=== PATIENT | male | born 1940 | race Caucasian/White ===

== ENCOUNTER 2016-08-28 04:36 | Emergency (ER) | payer OTHER ==
[2016-08-28 05:06] LABS: MANUAL DIFF NEEDED? NO
[2016-08-28 05:08] LABS: BASO% 0.3 % (0.0-0.8); EOS# 0.09 X1000 (0.0-0.7); EOS% 0.9 % (0.0-10.0); HEMATOCRIT 48.9 % (42.0-52.0); HEMOGLOBIN 16.6 g/dL (14.0-18.0); IMM GRAN# 0.02 X1000 (0.0-0.04); IMM GRAN% 0.2 % (0.0-0.5); LYMPH# 3.18 X1000 (1.2-3.4); LYMPH% 33.5 % (20.5-51.1); MCH 32.3 PG (27-31); MCHC 33.9 g/dL (33-37); MCV 95.1 FL (81-99); MONO# 0.91 X1000 (0.11-0.59); MONO% 9.6 % (1.7-9.3); MPV 11.3 FL (7.4-10.4); NEUT% 55.5 % (42.2-75.2); PLT 148 X1000 (130-400); RBC 5.14 XMIL (4.7-6.1)
[2016-08-28 05:24] LABS: AGAP 17; ALBUMIN 4.2 g/dL (3.5-5.0); ALKALINE PHOSPHATASE 100 U/L (32-122); BUN 17 mg/dL (8-22); CALCIUM 9.3 mg/dL (8.8-10.2); CHLORIDE 100 mmol/L (98-107); CK PROFILE 74 U/L (24-204); COSMO 282; GOT 70 U/L (10-34); GPT 83 U/L (10-44); MAGNESIUM 1.9 mg/dL (1.5-2.7); POTASSIUM 4.5 mmol/L (3.5-5.1); SODIUM 140 mmol/L (136-145); TCO2 23 mmol/L (25-35); TOTAL BILIRUBIN 1.58 mg/dL (0.20-1.00)
[2016-08-28 05:42] LABS: INR 1.01; PROTIME 10.7 Seconds (9.2-11.7); PTT 24.6 Seconds (22.0-36.0)
--- NOTE | 2016-08-28 06:03 | EKG Report ---
Test Performed on : 08/28/2016 04:42:36 AM Test Reason : CP Blood Pressure : / mmHG Vent. Rate : 060 BPM Atrial Rate : 060 BPM P-R Int : 178 ms QRS Dur : 098 ms QT Int : 454 ms P-R-T Axes : 017 -14 113 degrees QTc Int : 454 ms Normal sinus rhythm. Left ventricular hypertrophy with repolarization abnormality Abnormal ECG When compared with ECG of 10-NOV-2015 19:48, No significant change was found Unconfirmed Result
[2016-08-28 06:12] LABS: AMYLASE 59 U/L (20-200); LIPASE 51 U/L (13-60)
[2016-08-28 06:43] LABS: URINE MICRO REVIEW NEEDED? NO; URINE SOURCE VOIDED
[2016-08-28 06:51] LABS: BILIRUBIN URINE NEGATIVE (NEGATIVE); BLOOD URINE NEGATIVE (NEGATIVE); COLOR YELLOW; GLUCOSE URINE NEGATIVE (NEGATIVE); LEUKOCYTES URINE NEGATIVE (NEGATIVE); NITRITE URINE NEGATIVE (NEGATIVE); PROTEIN URINE NEGATIVE (NEGATIVE); SP GRAVITY URINE 1.012; TURBIDITY URINE CLEAR (CLEAR); UROBILINOGEN URINE NORMAL (NORMAL)
[2016-08-28 06:52] LABS: UR EPITHELIAL CELLS <10 /HPF (<10); URINE BACTERIA NEGATIVE /HPF; URINE RBC <10 /HPF (<10); URINE WBC <10 /HPF (<10)
--- NOTE | 2016-08-28 07:00 | PROVIDER DOCUMENTATION ---
HPI-Chest Pain - General Chief Complaint: Chest Pain Stated Complaint: CP Time Seen by Provider: 08/28/16 06:25 Source: patient (Says that he has had intermittent chest pain. Says that his pain is relieved by resting. No fever during this time. has not had any radiation of pain or associated nausea. Says that pain has been off and on the last 2 or so days and that he has this pain befor.) Allergies/Adverse Reactions: Patient Allergies Allergy/AdvReac Type Severity Reaction Status Date / Time shellfish derived Allergy Severe SHORTNESS Verified 08/28/16 07:01 OF BREATH Home Medications: Home Medication List Medication Instructions Recorded Confirmed Last Taken Type Atenolol 50 mg PO DAILY 01/23/14 07/19/16 07/19/16 History ATORVAstatin [Lipitor] 40 mg PO QHS 11/10/15 07/19/16 07/18/16 History Allopurinol 300 mg PO DAILY 11/10/15 07/19/16 07/19/16 History Amlodipine [Norvasc] 2.5 mg PO DAILY 11/10/15 07/19/16 07/19/16 History Aspirin [Ecotrin] 81 mg PO DAILY 11/10/15 07/19/16 07/19/16 History Bupropion HCl [Wellbutrin Xl] 300 mg PO DAILY 11/10/15 07/19/16 07/19/16 History Gabapentin [Neurontin] 300 mg PO TID 11/10/15 07/19/16 07/19/16 History Pantoprazole [Protonix] 40 mg PO DAILY@0700 11/10/15 07/19/16 07/19/16 History Tamsulosin [Flomax] 0.4 mg PO DAILY 11/10/15 07/19/16 07/19/16 History Carbidopa/Levodopa [Sinemet 25/100] 1 each PO BID 07/19/16 07/19/16 07/19/16 History Colchicine/Probenecid [Colbenemid] 0.5 each PO DAILY 07/19/16 07/19/16 07/19/16 History Duloxetine [Cymbalta] 60 mg PO BID 07/19/16 07/19/16 07/19/16 History Levothyroxine [Synthroid] 50 microgm PO DAILY 07/19/16 07/19/16 07/19/16 History Methocarbamol [Robaxin-750] 750 mg PO TID PRN 07/19/16 07/19/16 Unknown History Valsartan [Diovan] 160 mg PO DAILY 07/19/16 07/19/16 07/19/16 History Nitroglycerin 0.3 mg SL PRN PRN #30 tab.subl 08/28/16 Unknown Rx - History of Present Illness-CP Location: reports: substernal Chest Pain Radiation: reports: no radiation Quality of Pain: reports: aching Onset/Duration: 2 days ago Timing: gone now Associated Symptoms: denies: abdominal pain, back pain, diaphoresis, fatigue Prior Chest Pain/Cardiac Workup: reports: angina, cardiac cath Similar Symptoms Previously?: Yes Recently Seen Here or By Another Healthcare Provider: Yes Review of Systems - Adult - REVIEW OF SYSTEMS - ADULT Constitutional: reports: no symptoms reported Eyes: reports: no symptoms reported Ears, Nose, Mouth & Throat: reports: no symptoms reported Cardiovascular: reports: chest pain Respiratory: reports: no symptoms reported Gastrointestinal: reports: no symptoms reported Genitourinary: reports: no symptoms reported Musculoskeletal: reports: no symptoms reported Integumentary: reports: no symptoms reported Neurological: reports: no symptoms reported Endocrine: reports: no symptoms reported Hematologic/Lymphatic: reports: no symptoms reported Past History - Adult - PAST MEDICAL HISTORY-ADULT Review of Records: reports: Nursing Assessment Review Major Childhood Illnesses: reports: denies history Cardiovascular: reports: CAD, HTN, heart valve problem Respiratory: reports: denies history Gastrointestinal: reports: denies history Obstetrical/Gynecological: reports: denies history Genitourinary: reports: denies history Musculoskeletal: reports: denies history Neurological: reports: denies history Endocrine/Immune: reports: denies history Other Conditions: reports: denies history - PRIOR SURGERIES/PROCEDURES Surgical/Procedure History: reports: cardiac stent, other (aortic valve replacement--bovine) - IMMUNIZATION STATUS Childhood Immunizations: See Nurse Assessment Flu Vaccine: See Nurse Assessment - FAMILY HISTORY Family History: reviewed, not pertinent Physical Exam-General - PHYSICAL EXAM-ADULT Initial Vital Signs Reviewed: Yes - CONSTITUTIONAL General Appearance: appears well, no apparent distress - EYES Eyes: PERRL/EOMI - HEAD, EARS, NOSE, MOUTH & THROAT HENMT: normocephalic/atraumatic - NECK Neck: non-tender - RESPIRATORY Respiratory: chest non-tender - CARDIOVASCULAR Cardiovascular: regular rate, rhythm (mechanical valve cliclk appreciated on ausculatation.), no edema, no JVD - MUSCULOSKELETAL Back Exam: normal inspection - NEUROLOGIC Neurologic: technical support technician II-XII nml as tested Progress - REASSESSMENT Reassessment #1 Time Reassessed: 07:00 Status: improving (resting in room, made aware of plan to repeat cardiac enzymes and ecg in 2 hours) Reassessment #2 Time Reassessed: 09:17 Status: other (Patient slleping in room in NAD, says he has no chest pain and is ready to go home.) Departure - Departure Time of Disposition Order: 09:23 DIAGNOSIS: Stable angina Disposition: HOME 01 Certified Medical Emergency: Emergent Condition: Stable Additional Instructions: follow up with PCP in 1-2 days. Prescriptions: Nitroglycerin 0.3 mg SL PRN PRN #30 tab.subl PRN Reason: angina pain
--- NOTE | 2016-08-28 07:38 | Diag Imaging Result Document ---
PROCEDURE NAME: CHEST-1 VIEW - 08/28/2016 AP PORTABLE CHEST AT 0515 HOURS: FINDINGS: Compared to the previous study of 07/19/2016, considering differences in technique and inspiration, there has been no significant change. IMPRESSION: Stable chest.
--- NOTE | 2016-08-28 09:05 | ED EKG INTERP ---
EKG Interpretation - EKG Time of EKG reading by physician:: 04:42 EKG Read and Signed by:: Michael Duque EKG Interpretation (*Must complete 3 of following elements*): Abnormal Rate: 60 Rhythm: nsr QRS: LVH CO Interval: normal ST Wave: normal
--- NOTE | 2016-08-28 09:17 | EKG Report ---
Test Performed on : 08/28/2016 07:27:00 AM Test Reason : repeats Blood Pressure : / mmHG Vent. Rate : 059 BPM Atrial Rate : 059 BPM P-R Int : 194 ms QRS Dur : 094 ms QT Int : 428 ms P-R-T Axes : 033 -17 116 degrees QTc Int : 423 ms Sinus bradycardia. Left ventricular hypertrophy with repolarization abnormality Abnormal ECG When compared with ECG of 28-AUG-2016 04:42, No significant change was found Unconfirmed Result
--- NOTE | 2016-08-28 09:23 | ED EKG INTERP ---
EKG Interpretation - EKG Time of EKG reading by physician:: 07:27 EKG Read and Signed by:: Tam Herrera EKG Interpretation (*Must complete 3 of following elements*): Abnormal Rate: 59 Rhythm: sinus sarah [place]: normal QRS: LVH (left ventricular hypertrophy w/ repolarization adnormality) MI Interval: normal ST Wave: normal
[2016-08-28 10:45] VITALS: BP 130/80
== END 2016-08-28 10:45 | disposition home or self-care (01) ==
LOC: ED 04:36
DX: I20.8 Other forms of angina pectoris (principal); R94.31 Abnormal electrocardiogram [ECG] [EKG]; R07.89 Other chest pain; I25.10 Atherosclerotic heart disease of native coronary artery without angina pectoris; I10 Essential (primary) hypertension; Z79.899 Other long term (current) drug therapy; Z95.5 Presence of coronary angioplasty implant and graft; Z95.2 Presence of prosthetic heart valve
CPT/HCPCS: 71010; 80053; 81001; 82150; 82550; 83690; 83735; 83880; 84484; 85025; 85379; 85610; 85730; 93005

== ENCOUNTER 2016-09-06 19:38 | Inpatient (IN) | payer OTHER ==
--- NOTE | 2016-09-06 19:58 | PROVIDER DOCUMENTATION ---
HPI-Chest Pain - General Source: patient <Alina Branham - Last Filed: 09/07/16 02:12> <Tonny Puri - Last Filed: 09/07/16 02:39> - General Chief Complaint: Chest Pain Stated Complaint: CP Time Seen by Provider: 09/06/16 19:53 Allergies/Adverse Reactions: Patient Allergies Allergy/AdvReac Type Severity Reaction Status Date / Time shellfish derived Allergy Severe SHORTNESS Verified 09/07/16 01:39 OF BREATH Home Medications: Home Medication List Medication Instructions Recorded Confirmed Last Taken Type Atenolol 50 mg PO DAILY 01/23/14 07/19/16 07/19/16 History ATORVAstatin [Lipitor] 40 mg PO QHS 11/10/15 07/19/16 07/18/16 History Allopurinol 300 mg PO DAILY 11/10/15 07/19/16 07/19/16 History Amlodipine [Norvasc] 2.5 mg PO DAILY 11/10/15 07/19/16 07/19/16 History Aspirin [Ecotrin] 81 mg PO DAILY 11/10/15 07/19/16 07/19/16 History Bupropion HCl [Wellbutrin Xl] 300 mg PO DAILY 11/10/15 07/19/16 07/19/16 History Gabapentin [Neurontin] 300 mg PO TID 11/10/15 07/19/16 07/19/16 History Pantoprazole [Protonix] 40 mg PO DAILY@0700 11/10/15 07/19/16 07/19/16 History Tamsulosin [Flomax] 0.4 mg PO DAILY 11/10/15 07/19/16 07/19/16 History Carbidopa/Levodopa [Sinemet 25/100] 1 each PO BID 07/19/16 07/19/16 07/19/16 History Colchicine/Probenecid [Colbenemid] 0.5 each PO DAILY 07/19/16 07/19/16 07/19/16 History Duloxetine [Cymbalta] 60 mg PO BID 07/19/16 07/19/16 07/19/16 History Levothyroxine [Synthroid] 50 microgm PO DAILY 07/19/16 07/19/16 07/19/16 History Methocarbamol [Robaxin-750] 750 mg PO TID PRN 07/19/16 07/19/16 Unknown History Valsartan [Diovan] 160 mg PO DAILY 07/19/16 07/19/16 07/19/16 History Nitroglycerin 0.3 mg SL PRN PRN #30 tab.subl 08/28/16 Unknown Rx - History of Present Illness-CP Nature of Presenting Problem: 76 y/o WM c/o CP x 5 hours. Pt states that he was standing up and talking when the CP started. States that CP is in anterior L chest. Does not radiate. Denies any SOB. States intermittent in nature. Reports that it is 01/04. Was seen in ED 2 weeks ago for the same. States Dr. Dinero is general teller. Denies any N/V, abd. pain. States took 650 mg of ASA at home; did not take nitro, although he has Rx. (Alina Branham) Review of Systems - Adult - REVIEW OF SYSTEMS - ADULT Constitutional: reports: no symptoms reported. denies: chills, fever Eyes: reports: no symptoms reported. denies: blurred vision, double vision Ears, Nose, Mouth & Throat: reports: no symptoms reported. denies: ear pain, loose teeth Cardiovascular: reports: see HPI, chest pain. denies: palpitations Respiratory: reports: no symptoms reported. denies: dyspnea on exertion, shortness of breath Gastrointestinal: reports: no symptoms reported. denies: abdominal pain, nausea , vomiting Genitourinary: reports: no symptoms reported. denies: dysuria, frequency Musculoskeletal: reports: no symptoms reported. denies: joint pain, joint swelling Integumentary: reports: no symptoms reported. denies: nail changes, rash Neurological: reports: no symptoms reported. denies: numbness, paresthesia Psychiatric: reports: no symptoms reported Endocrine: reports: no symptoms reported. denies: cold intolerance, heat intolerance Hematologic/Lymphatic: reports: no symptoms reported. denies: easy bruising, prolonged bleeding Allergic/Immunologic: reports: no symptoms reported All Other Systems: Reviewed and Negative <Alina Branham - Last Filed: 09/07/16 02:12> Past History - Adult - PAST MEDICAL HISTORY-ADULT Review of Records: reports: Nursing Assessment Review, Medications Reviewed Major Childhood Illnesses: reports: denies history Cardiovascular: reports: CAD, HTN, heart valve problem (aortic valve), [place] Respiratory: reports: denies history Gastrointestinal: reports: denies history Obstetrical/Gynecological: reports: denies history Genitourinary: reports: denies history Musculoskeletal: reports: denies history Neurological: reports: denies history Endocrine/Immune: reports: denies history Other Conditions: reports: denies history - PRIOR SURGERIES/PROCEDURES Surgical/Procedure History: reports: cholecystectomy, cardiac stent, other ( aortic valve replacement--bovine) - IMMUNIZATION STATUS Childhood Immunizations: See Nurse Assessment Flu Vaccine: See Nurse Assessment - FAMILY HISTORY Family History: reviewed, not pertinent - SOCIAL HISTORY Smoking: denies Alcohol Use Frequency: never <Maxime Branhamine MaximinoNatalee - Last Filed: 09/07/16 02:12> Physical Exam-General - PHYSICAL EXAM-ADULT Initial Vital Signs Reviewed: Yes - CONSTITUTIONAL General Appearance: alert, mild distress - EYES Eyes: pink conjunctivae - HEAD, EARS, NOSE, MOUTH & THROAT HENMT: normocephalic/atraumatic, moist mucous membranes - NECK Neck: normal inspection - RESPIRATORY Respiratory: chest non-tender, lungs clear, normal breath sounds. negative: crackles, rales, rhonchi, stridor, wheezing - CARDIOVASCULAR Cardiovascular: regular rate, rhythm, diastolic murmur. negative: bradycardia, tachycardia - GASTROINTESTINAL (ABDOMEN) Abdominal Exam: normal bowel sounds, non tender, soft - MUSCULOSKELETAL Back Exam: normal inspection Extremity: normal gait - SKIN Integumentary: normal color, normal turgor, warm/dry. negative: diaphoresis - NEUROLOGIC Neurologic: negative: aphasia - PSYCHIATRIC Psych/Mental Status: normal mood/affect, normal thought content, normal thought process, oriented x 3 <Alina Branham. - Last Filed: 09/07/16 02:12> Progress - XRAY 1 XRAY Study: Chest XRAY Interpretation: No acute findings; post CABG changes noted - CONSULTS/PCP/HOSPITALIST Notification #1 *Consult/PCP/Hospitalist*: Dr. Saenz Time Discussed: 01:41 Reason/Comments: CP Consult Disposition: other (call general teller for further advisement, then call back if pt will be needing inpatient) #2 Consult: Dr. Blunt Time Discussed: 01:48 Reason/Comments: CP Consult Disposition: other (send to if CP not controlled) - CHANGE OF SHIFT REPORT (ED Provider) Report Given and Care Transferred to:: Dr. Cary Time of Transfer: 02:12 Items Pending: Physician Consult/Arrival ( admit for unstable angina) Tentative Impression of Patient: unstable angina <Alina Branham - Last Filed: 09/07/16 02:12> - REASSESSMENT Reassessment #1 Time Reassessed: 02:26 Status: improving (Pt reports that he is not having chest pain right now; Pt reports it is intermittent, but resolved after he was given a third nitro.) - CONSULTS/PCP/HOSPITALIST Notification #1 *Consult/PCP/Hospitalist*: Dr. Blunt (Senior Design Engineer) Time Discussed: 02:31 Consult Disposition: other (recommended to admit) #2 Consult: Dr. Saenz (Hospitalist) Time Discussed: 02:38 Reason/Comments: Informed Dr. Saenz that pt will be staying - CHANGE OF SHIFT REPORT (ED Provider) Report Given and Care Transferred to:: Dr. Cary Time of Transfer: 02:25 Items Pending: Physician Consult/Arrival <Tonny Puri - Last Filed: 09/07/16 02:39> - PLAN OF CARE/RESULTS Progress/Plan/Lab Results: Laboratory Tests 09/06/16 09/06/16 09/06/16 19:46 19:46 19:46 WBC 8.58 RBC 4.24 L Hgb 14.0 Hct 40.5 L MCV 95.5 MCH 33.0 H MCHC 34.6 RDW Std Deviation 14.3 Plt Count 130 MPV 11.1 H Immature Gran % (Auto) 0.3 Neut % (Auto) 58.3 Lymph % (Auto) 29.4 [place] % (Auto) 9.6 H Eos % (Auto) 1.9 Baso % (Auto) 0.5 Immature Gran # (Auto) 0.03 Neut # (Auto) 5.01 Lymph # (Auto) 2.52 [place] # (Auto) 0.82 H Eos # (Auto) 0.16 Baso # (Auto) 0.04 PT INR PTT (Actin FS) D-Dimer 0.29 Sodium 139 Potassium 3.9 Chloride 101 Carbon Dioxide 26 Anion Gap 12 BUN 13 Creatinine 1.0 Estimated GFR/1.73 m2 > 60 BUN/Creatinine Ratio 13 Glucose 137 H Calculated Osmolality 280 Calcium 9.0 Magnesium 1.6 Total Bilirubin 0.95 AST 46 H ALT 50 H Alkaline Phosphatase 93 Creatine Kinase 99 Troponin T Mau-D-Elmpxnndksr Pept Total Protein 6.2 L Albumin 3.9 Globulin 2.3 Albumin/Globulin Ratio 1.7 09/06/16 09/06/16 09/06/16 19:46 19:46 19:46 WBC RBC Hgb Hct MCV MCH MCHC RDW Std Deviation Plt Count MPV Immature Gran % (Auto) Neut % (Auto) Lymph % (Auto) [place] % (Auto) Eos % (Auto) Baso % (Auto) Immature Gran # (Auto) Neut # (Auto) Lymph # (Auto) [place] # (Auto) Eos # (Auto) Baso # (Auto) PT 10.5 INR 1.03 PTT (Actin FS) 23.1 D-Dimer Sodium Potassium Chloride Carbon Dioxide Anion Gap BUN Creatinine Estimated GFR/1.73 m2 BUN/Creatinine Ratio Glucose Calculated Osmolality Calcium Magnesium Total Bilirubin AST ALT Alkaline Phosphatase Creatine Kinase Troponin T < 0.010 Ocb-P-Arzvxlwudhi Pept 256 H Total Protein Albumin Globulin Albumin/Globulin Ratio 09/07/16 09/07/16 00:30 00:30 WBC RBC Hgb Hct MCV MCH MCHC RDW Std Deviation Plt Count MPV Immature Gran % (Auto) Neut % (Auto) Lymph % (Auto) [place] % (Auto) Eos % (Auto) Baso % (Auto) Immature Gran # (Auto) Neut # (Auto) Lymph # (Auto) [place] # (Auto) Eos # (Auto) Baso # (Auto) PT INR PTT (Actin FS) D-Dimer Sodium Potassium Chloride Carbon Dioxide Anion Gap BUN Creatinine Estimated GFR/1.73 m2 BUN/Creatinine Ratio Glucose Calculated Osmolality Calcium Magnesium Total Bilirubin AST ALT Alkaline Phosphatase Creatine Kinase 87 Troponin T < 0.010 Oud-B-Fsuotbpcwhp Pept Total Protein Albumin Globulin Albumin/Globulin Ratio Orders Category Date Time Status CHEST-2 VIEWS [RAD] Stat Exams 09/06/16 19:55 Taken CBC WITH ELECTRONIC DIFF [HEME] Stat Lab 09/06/16 19:46 Completed CK PROFILE [SP CHEM] Stat Lab 09/06/16 19:46 Completed CK PROFILE [SP CHEM] Stat Lab 09/07/16 00:30 Completed COMPREHENSIVE METABOLIC PANEL [CHEM] Stat Lab 09/06/16 19:46 Completed D-DIMER [CHEM] Stat Lab 09/06/16 19:46 Completed MAGNESIUM [CHEM] Stat Lab 09/06/16 19:46 Completed PRO B-NATRIURETIC PEPTIDE Stat Lab 09/06/16 19:46 Completed PROTIME WITH INR [COAG] Stat Lab 09/06/16 19:46 Completed PTT [COAG] Stat Lab 09/06/16 19:46 Completed TROPONIN T Stat Lab 09/06/16 19:46 Completed TROPONIN T Stat Lab 09/07/16 00:30 Completed Nitroglycerin Sl [Nitroglycerin] Med 09/07/16 00:09 Active 0.4 mg SL Q5M PRN PRN EKG [EKG] Stat Ther 09/06/16 19:55 Ordered EKG [EKG] Stat Ther 09/06/16 22:10 Ordered Vital Signs Temp Pulse Resp BP Pulse Ox 09/07/16 00:33 68 17 160/89 98 09/06/16 19:45 98.1 F 64 18 149/94 99 shellfish derived Allergy (Severe, Verified 08/28/16 07:01) SHORTNESS OF BREATH Atenolol 50 mg PO DAILY 01/23/14 ATORVAstatin [Lipitor] 40 mg PO QHS 11/10/15 Allopurinol 300 mg PO DAILY 11/10/15 Amlodipine [Norvasc] 2.5 mg PO DAILY 11/10/15 Aspirin [Ecotrin] 81 mg PO DAILY 11/10/15 Bupropion HCl [Wellbutrin Xl] 300 mg PO DAILY 11/10/15 Gabapentin [Neurontin] 300 mg PO TID 11/10/15 Pantoprazole [Protonix] 40 mg PO DAILY@0700 11/10/15 Tamsulosin [Flomax] 0.4 mg PO DAILY 11/10/15 Carbidopa/Levodopa [Sinemet 25/100] 1 each PO BID 07/19/16 Colchicine/Probenecid [Colbenemid] 0.5 each PO DAILY 07/19/16 Duloxetine [Cymbalta] 60 mg PO BID 07/19/16 Levothyroxine [Synthroid] 50 microgm PO DAILY 07/19/16 Methocarbamol [Robaxin-750] 750 mg PO TID PRN 07/19/16 Valsartan [Diovan] 160 mg PO DAILY 07/19/16 Nitroglycerin 0.3 mg SL PRN PRN #30 tab.subl 08/28/16 Laboratory 09/07/16 09/07/16 09/06/16 00:30 00:30 19:46 WBC RBC Hgb Hct MCV MCH MCHC RDW Std Deviation Plt Count MPV Immature Gran % (Auto) Neut % (Auto) Lymph % (Auto) [place] % (Auto) Eos % (Auto) Baso % (Auto) Immature Gran # (Auto) Neut # (Auto) Lymph # (Auto) [place] # (Auto) Eos # (Auto) Baso # (Auto) PT INR PTT (Actin FS) D-Dimer Sodium Potassium Chloride Carbon Dioxide Anion Gap BUN Creatinine Estimated GFR/1.73 m2 BUN/Creatinine Ratio Glucose Calculated Osmolality Calcium Magnesium Total Bilirubin AST ALT Alkaline Phosphatase Creatine Kinase 87 Troponin T < 0.010 < 0.010 Lai-U-Dyxhqyncnme Pept Total Protein Albumin Globulin Albumin/Globulin Ratio 09/06/16 09/06/16 09/06/16 19:46 19:46 19:46 WBC RBC Hgb Hct MCV MCH MCHC RDW Std Deviation Plt Count MPV Immature Gran % (Auto) Neut % (Auto) Lymph % (Auto) [place] % (Auto) Eos % (Auto) Baso % (Auto) Immature Gran # (Auto) Neut # (Auto) Lymph # (Auto) [place] # (Auto) Eos # (Auto) Baso # (Auto) PT 10.5 INR 1.03 PTT (Actin FS) 23.1 D-Dimer 0.29 Sodium Potassium Chloride Carbon Dioxide Anion Gap BUN Creatinine Estimated GFR/1.73 m2 BUN/Creatinine Ratio Glucose Calculated Osmolality Calcium Magnesium Total Bilirubin AST ALT Alkaline Phosphatase Creatine Kinase Troponin T Hsc-S-Qggdhvsflnv Pept 256 H Total Protein Albumin Globulin Albumin/Globulin Ratio 09/06/16 09/06/16 19:46 19:46 WBC 8.58 RBC 4.24 L Hgb 14.0 Hct 40.5 L MCV 95.5 MCH 33.0 H MCHC 34.6 RDW Std Deviation 14.3 Plt Count 130 MPV 11.1 H Immature Gran % (Auto) 0.3 Neut % (Auto) 58.3 Lymph % (Auto) 29.4 [place] % (Auto) 9.6 H Eos % (Auto) 1.9 Baso % (Auto) 0.5 Immature Gran # (Auto) 0.03 Neut # (Auto) 5.01 Lymph # (Auto) 2.52 [place] # (Auto) 0.82 H Eos # (Auto) 0.16 Baso # (Auto) 0.04 PT INR PTT (Actin FS) D-Dimer Sodium 139 Potassium 3.9 Chloride 101 Carbon Dioxide 26 Anion Gap 12 BUN 13 Creatinine 1.0 Estimated GFR/1.73 m2 > 60 BUN/Creatinine Ratio 13 Glucose 137 H Calculated Osmolality 280 Calcium 9.0 Magnesium 1.6 Total Bilirubin 0.95 AST 46 H ALT 50 H Alkaline Phosphatase 93 Creatine Kinase 99 Troponin T Ftn-X-Kwmctgubmsj Pept Total Protein 6.2 L Albumin 3.9 Globulin 2.3 Albumin/Globulin Ratio 1.[address] Cary; he states pt needs to be admitted for observation. (Alina Branham) Departure - Departure Time of Disposition Order: 01:18 Certified Medical Emergency: Emergent <Alina Branham - Last Filed: 09/07/16 02:12> <Tonny Puri - Last Filed: 09/07/16 02:39> - Departure DIAGNOSIS: Chest pain Qualifiers: Chest pain type: unspecified Qualified Code(s): R07.9 - Chest pain, unspecified Disposition: ADMITTED INPATIENT 09 Condition: Stable Referrals: Fuentes Katz MD [Primary Care Provider] - Attestation - Physician/ ALLIE Attestation Patient care was provided by Advanced Practice Provider:: Yes Advanced Practice Provider:: Alina Branham Advanced Practice Provider documentation review:: The Mid-level provider documentation, treatment plan and medical decision making was reviewed by the physician who agrees with all treatment and medical decision making by the P. <Alina Branham - Last Filed: 09/07/16 02:12> - Scribe Verification/Attestation Scribe:: Tonny Puri Acting as Scribe for:: Alex Cary Scribe documention review:: This chart was documented by a scribe and accurately reflects the service the provider performed and the decisions made by the provider. <Tonny Puri - Last Filed: 09/07/16 02:39> Physician Attestation
[2016-09-06 20:00] LABS: MANUAL DIFF NEEDED? NO
[2016-09-06 20:06] LABS: BASO% 0.5 % (0.0-0.8); EOS# 0.16 X1000 (0.0-0.7); EOS% 1.9 % (0.0-10.0); HEMATOCRIT 40.5 % (42.0-52.0); IMM GRAN# 0.03 X1000 (0.0-0.04); IMM GRAN% 0.3 % (0.0-0.5); LYMPH# 2.52 X1000 (1.2-3.4); LYMPH% 29.4 % (20.5-51.1); MCHC 34.6 g/dL (33-37); MCV 95.5 FL (81-99); MONO# 0.82 X1000 (0.11-0.59); MONO% 9.6 % (1.7-9.3); MPV 11.1 FL (7.4-10.4); NEUT% 58.3 % (42.2-75.2); PLT 130 X1000 (130-400); RBC 4.24 XMIL (4.7-6.1)
[2016-09-06 20:19] LABS: INR 1.03; PROTIME 10.5 Seconds (9.2-11.7); PTT 23.1 Seconds (22.0-36.0)
[2016-09-06 20:27] LABS: AGAP 12; ALBUMIN 3.9 g/dL (3.5-5.0); ALKALINE PHOSPHATASE 93 U/L (32-122); BUN 13 mg/dL (8-22); CHLORIDE 101 mmol/L (98-107); CK PROFILE 99 U/L (24-204); COSMO 280; GOT 46 U/L (10-34); GPT 50 U/L (10-44); MAGNESIUM 1.6 mg/dL (1.5-2.7); POTASSIUM 3.9 mmol/L (3.5-5.1); SODIUM 139 mmol/L (136-145); TCO2 26 mmol/L (25-35); TOTAL BILIRUBIN 0.95 mg/dL (0.20-1.00); TOTAL PROTEIN 6.2 g/dL (6.3-8.3)
--- NOTE | 2016-09-07 00:45 | ED EKG INTERP ---
EKG Interpretation - EKG Time of EKG reading by physician:: 00:44 EKG Read and Signed by:: Alex Cary EKG Interpretation (*Must complete 3 of following elements*): Abnormal (LVH with repolarization abnormality) Rate: 65 Rhythm: Sinus rhythm with PAC with aberrant conduction Attestation - Scribe Verification/Attestation Scribe:: Tonny Puri Acting as Scribe for:: Alex Cary Scribe documention review:: This chart was documented by a scribe and accurately reflects the service the provider performed and the decisions made by the provider.
[2016-09-07] MEDS ORDERED: G.I. COCKTAIL PO ONE (01:47)
[2016-09-07] MEDS ORDERED: TRANDATE PO ONE (01:47)
[2016-09-07] MEDS: NITROGLYCERIN SL PRN ×3 (01:48→01:58)
[2016-09-07] MEDS ORDERED: MORPHINE IV ONE (02:25)
[2016-09-07] MEDS ORDERED: LASIX IV ONE (02:25)
[2016-09-07] MEDS ORDERED: ZOFRAN IV ONE (02:25)
[2016-09-07] MEDS ORDERED: ZOFRAN IV PRN ×2 (04:22→22:57)
[2016-09-07] MEDS ORDERED: NITROGLYCERIN TOP ONE (04:22)
[2016-09-07] MEDS ORDERED: MORPHINE ONE (04:28)
[2016-09-07] MEDS: MORPHINE IV PRN ×2 (04:32→20:57)
[2016-09-07] MEDS: LOVENOX SUBQ SCH (06:49)
[2016-09-07] MEDS ORDERED: PRILOSEC PO SCH (07:00)
--- NOTE | 2016-09-07 07:24 | HISTORY AND PHYSICAL ---
REASON FOR ADMISSION: Chest pain yesterday afternoon. Adriel Zamorano is a 76-year-old male with a past medical history of carotid disease, aortic stenosis, status post aortic valve replacement with bioprosthetic valve, gout, hypertension, hyperlipidemia, hyperlipidemia, benign prostatic hypertrophy, who comes in complaining of some sharp pain in the precordial area nonradiating, nonreassuring, with any anginal equivalent. He says the pain would last anywhere between 3-5 minutes and spontaneously resolved. No antecedent triggers for this pain. He has had a total of 5-6 episodes and decided to come in on the 6th episode, which was pretty much the longest one lasting over 30-45 minutes. He received a total of 2 sublingual nitroglycerin tablets, which initially relieved his pain, only for it to recur again about 30 minutes later and is receiving morphine for this. Again, he denies any anginal equivalents, i.e. palpitations, lightheadedness, nausea, vomiting, diaphoresis. No antecedent lower extremity symptoms. No swelling or pain. No paroxysmal nocturnal dyspnea or orthopnea. No cough, fever, or chills. Yesterday he complained of having a 1 hour episode of pain shooting down both arms, which spontaneously resolve on its own. REVIEW OF SYSTEMS: Twelve system review is negative. Positive findings per history of present illness. ALLERGIES: Shellfish. HOME MEDICATIONS: Not yet addressed, but old records show that he was taking Robaxin 750 mg daily, colchicine, probenecid 0.5 mg tablets daily, Cymbalta 60 mg b.i.d., carbidopa 25/100 b.i.d., Synthroid 50 mcg daily, valsartan 160 mg daily, allopurinol 200 mg daily, aspirin 81 mg daily, Wellbutrin XL 200 mg daily, Flomax 0.4 mg daily, Lipitor 40 mg daily, gabapentin 200 mg b.i.d., Norvasc 2.5 mg daily, Protonix 40 mg daily, sublingual nitroglycerin p.r.n. SURGICAL HISTORY: Noted for cataract surgery, aortic valve replacement, coronary stenting. FAMILY HISTORY: No first-degree relatives with heart disease, and type 2 diabetes. SOCIAL HISTORY: Chews tobacco. Does not smoke, drink alcohol, or use illicit drugs. He is . EKG showed normal sinus rhythm with premature atrial contractions and left ventricular hypertrophy in the high lateral leads. Chest x-ray is clear of any infiltrates or increased vascular markings. LABORATORY WORK: Rest of laboratory work his white count 8000. Hemoglobin and hematocrit 14 and 40.5. Platelets 113,000, normal differential. Glucose 137. AST 46, ALT 50. Troponin times 2 negative. ProBNP 256. D-dimer is normal. PTT is normal. PHYSICAL EXAMINATION: VITAL SIGNS: Blood pressure is 104/73, heart rate is 60, respirations 16, 95% on room air, temperature is 98.1. HEAD: Head is normocephalic, atraumatic. EYES: Pupils equal, round, and reactive to light and accommodation. Extraocular movements intact. He is anicteric, not pale. ENT EXAMINATION: Oropharynx is grossly normal. NECK: Supple. No jugular venous distention, carotid bruit, no thyromegaly. CHEST: Clear to auscultation. Good sounds in both lung vasquez. CARDIOVASCULAR: First and second heart sounds heard. A 2/6 ejection systolic murmur heard, loudest in the aortic area radiating to the neck. Rhythm is regular. No gallops. ABDOMEN: Slightly protuberant, soft, nontender. No mass or organomegaly. Bowel sounds are hyperactive. RECTAL EXAMINATION: Not done. EXTREMITIES: Patient has bilateral hyperpigmented changes on his lower extremities. No erythema or pretibial edema. No clubbing or peripheral cyanosis. Pulses distally in his lower extremities are symmetrical, but volume was diminished. NEUROLOGICAL: No focal deficits. SKIN: Intact otherwise, other than the findings noted as above. MUSCULOSKELETAL EXAMINATION: Normal. ASSESSMENT: 1. Chest pain syndrome in a patient with documented coronary artery disease. 2. Aortic murmur, probably related to his aortic valve. 3. Hypertension. 4. Hyperlipidemia. 5. Gout. 6. Hypothyroidism. PLAN: At this time the patient will be admitted to rule out any impending acute coronary event. Dr. Blunt, the automobile body repairer helper was notified and he agreed that we should admit the patient. I will defer to cardiology on how to cardiology on how they will proceed i.e. cath versus stress test. Last stress test was done in 2013 and this was negative for any ischemia. For now, we will continue with his statin therapy, beta blockers, and aspirin. Put the patient on low-dose nitroglycerin paste. Pending evaluation. Check lipid panel and decide if we need to increase the dose of Lipitor. Counseled patient against chewing tobacco. The patient was given a GI cocktail without any relief. This baseline suggests underlying cardiac disease. Will get echocardiogram to evaluate patient's aortic valve status.
--- NOTE | 2016-09-07 08:59 | EKG Report ---
Test Performed on : 09/07/2016 04:14:58 AM Test Reason : Chest Pain Blood Pressure : / mmHG Vent. Rate : 060 BPM Atrial Rate : 060 BPM P-R Int : 180 ms QRS Dur : 098 ms QT Int : 450 ms P-R-T Axes : 039 -25 113 degrees QTc Int : 450 ms Normal sinus rhythm. Left ventricular hypertrophy with repolarization abnormality Abnormal ECG When compared with ECG of 07-SEP-2016 00:25, (Unconfirmed) aberrant conduction. is no longer present Confirmed by Maria Del Carmen BAILEY, Dmitriy Mosley ([id number]) on 09/09/2016 3:21:42 PM
--- NOTE | 2016-09-07 09:04 | EKG Report ---
Test Performed on : 09/07/2016 00:25:56 AM Test Reason : CP Blood Pressure : / mmHG Vent. Rate : 065 BPM Atrial Rate : 065 BPM P-R Int : 188 ms QRS Dur : 100 ms QT Int : 412 ms P-R-T Axes : 083 -07 119 degrees QTc Int : 428 ms Sinus rhythm. with premature atrial complexes. with aberrant conduction. Left ventricular hypertrophy with repolarization abnormality Abnormal ECG When compared with ECG of 06-SEP-2016 19:42, (Unconfirmed) aberrant conduction. is now present Confirmed by Maria Del Carmen BALIEY, Dmitriy Mosley ([id number]) on 09/09/2016 3:21:41 PM
--- NOTE | 2016-09-07 09:17 | EKG Report ---
Test Performed on : 09/06/2016 7:42:15 PM Test Reason : Chest Pain Blood Pressure : / mmHG Vent. Rate : 062 BPM Atrial Rate : 062 BPM P-R Int : 164 ms QRS Dur : 108 ms QT Int : 424 ms P-R-T Axes : 011 -04 112 degrees QTc Int : 430 ms Normal sinus rhythm. Left ventricular hypertrophy with repolarization abnormality Abnormal ECG When compared with ECG of 28-AUG-2016 07:27, (Unconfirmed) No significant change was found Unconfirmed Result
[2016-09-07 10:11] LABS: MANUAL DIFF NEEDED? NO
--- NOTE | 2016-09-07 10:13 | Diag Imaging Result Document ---
PROCEDURE NAME: CHEST-2 VIEWS - 09/06/2016 CHEST X-RAY 2 VIEWS, 09/06/2016: COMPARISON: 08/28/2016. FINDINGS: Stable cardiac surgery. Heart size and pulmonary vascularity are normal. No focal infiltrates, pneumothorax, or pleural effusion. IMPRESSION: No acute disease or change from prior.
[2016-09-07 10:14] LABS: BASO% 0.4 % (0.0-0.8); EOS# 0.18 X1000 (0.0-0.7); EOS% 2.5 % (0.0-10.0); HEMATOCRIT 41.7 % (42.0-52.0); HEMOGLOBIN 14.5 g/dL (14.0-18.0); LYMPH# 2.14 X1000 (1.2-3.4); LYMPH% 29.8 % (20.5-51.1); MCH 33.3 PG (27-31); MCHC 34.8 g/dL (33-37); MCV 95.9 FL (81-99); MONO# 0.67 X1000 (0.11-0.59); MONO% 9.3 % (1.7-9.3); MPV 11.2 FL (7.4-10.4); PLT 132 X1000 (130-400); RBC 4.35 XMIL (4.7-6.1)
[2016-09-07] MEDS: TENORMIN PO SCH (10:38)
[2016-09-07] MEDS: TYLENOL PO PRN ×2 (10:38→17:36)
[2016-09-07] MEDS: NEURONTIN PO SCH ×3 (10:39→17:38)
[2016-09-07] MEDS: SYNTHROID PO SCH (10:39)
[2016-09-07] MEDS: NORVASC PO SCH (10:39)
[2016-09-07] MEDS: SINEMET 25/100 PO SCH ×2 (10:39→20:56)
[2016-09-07 10:40] LABS: AGAP 14; BUN 11 mg/dL (8-22); CALCIUM 8.9 mg/dL (8.8-10.2); CHLORIDE 101 mmol/L (98-107); COSMO 285; SODIUM 143 mmol/L (136-145); TCO2 28 mmol/L (25-35)
[2016-09-07] MEDS: ASPIRIN PO SCH (10:40)
[2016-09-07] MEDS: PRILOSEC PO SCH (10:40)
[2016-09-07] MEDS: FLOMAX PO SCH (10:40)
[2016-09-07] MEDS: DIOVAN PO SCH (10:40)
[2016-09-07] MEDS ORDERED: LEXISCAN ONE (11:50)
[2016-09-07] MEDS ORDERED: AMINOPHYLLINE ONE (12:42)
--- NOTE | 2016-09-07 15:18 | CONSULTATION ---
DATE OF CONSULTATION: 09/07/2016 CHIEF COMPLAINT: Chest pain. REQUESTING PHYSICIAN: Dr. Fuentes Katz HISTORY OF PRESENT ILLNESS: Mr. Zamorano is a 76-year-old male. He says that on 09/05/2016, he had an episode of about an hour duration of discomfort in both arms from the elbows all the way down to the hands. This happened for no reason when he was watching TV. Then the following day at about 2:00 p.m. or so, he started noticing discomfort in the anterior chest that he described as sharp and recurrent, lasting only for a few moments. He had multiple episodes of this, and then eventually he decided to come into the emergency room seeking evaluation. Upon arrival, they did an electrocardiogram which showed no acute changes. He received several blood studies including troponins, they have done a total of 4, all of them negative. They checked a ProBNP level that is minimally elevated at 256, normal is up to 229. They have done electrolytes, all of them normal. Hemoglobin is normal. Chest x-ray was done at the time of presentation that shows no acute disease or change from prior. They checked a cholesterol panel on him that shows a total cholesterol of 108, LDL is 49, HDL is 40, triglycerides 193. That is the lowest cholesterol he has had in a long time. He had normal D-dimer, ProTime and PTT. The patient has already undergone a stress test this afternoon. I am seeing him at about 2:15 in the afternoon. His stress test shows a predominantly fixed apical anterior defect which is very mild and focal, and it also shows a mixed defect in the inferolateral wall which would correspond to a previously occluded circumflex. The patient states that he is feeling essentially fine. PAST MEDICAL HISTORY: Positive for severe coronary artery disease. He has had previous occlusion of the circumflex coronary artery with collaterals noted and cardiac catheterization performed back in 2010. Last year in 07/2015, he suffered an acute anterior myocardial infarction and at that time, they had to perform thrombectomy of the LAD. They put him on dual antiplatelet therapy; however, for unknown reasons, he only took the dual antiplatelet therapy for about 6 months, and then he discontinued it. He has had a previous diagnosis of aortic valve disease and in 2006 he underwent aortic valve replacement with a #21 Venita-Singh bioprosthetic valve. He has dyslipidemia which has been very difficult to treat, and lately he was placed on Praluent, and that has led to a significant reduction in his LDL. He has had a previous stent to the right coronary artery. He has had gastric reflux. He has had gout. He has had hypertension. PAST SURGICAL HISTORY: Cholecystectomy. SOCIAL HISTORY: He is to his for 56 years. He has 2 children. He is not a smoker. 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 FAMILY HISTORY: Noncontributory. His mother is still alive, she is 94. MEDICATIONS: Listed at this time included atorvastatin 40 at bedtime, allopurinol 300 daily, amlodipine 2.5 daily, aspirin 81 daily, atenolol 50 daily, bupropion 300 daily, carbidopa/levodopa (Sinemet) 25/100 twice a day, colchicine 0.5 mg daily, Cymbalta 60 mg twice a day, gabapentin 300 three times a day, levothyroxine 50 mcg daily, methocarbamol 750 three times a day, nitroglycerin 0.4 mg as needed, Protonix 40 mg daily, Flomax 0.4 mg daily, valsartan 160 daily. ALLERGIES: Shellfish. REVIEW OF SYSTEMS: Really noncontributory after cardiovascular, pulmonary, gastrointestinal, neurological, psychiatric, skin, hematologic, oncologic, ENT, genitourinary and metabolic were reviewed. PHYSICAL EXAMINATION: Blood pressure is 104/73, temperature 98.1, respirations 16. He is awake, alert and oriented, in no distress. HEENT: Unremarkable. Chest: Clear to auscultation and percussion. Cardiovascular: He shows a sternotomy. Heart sounds are regular and rhythmic. He has a 2/6 systolic ejection murmur with a systolic click over the aortic area. Abdomen: Nontender, obese. No masses. No hepatomegaly. Extremities show good pulses, no edema. Neurologic: He moves all 4 extremities, follows commands. IMPRESSION: 1. The patient presented with chest pain which is atypical. He does have previous diagnosis of coronary artery disease with total occlusion of circumflex, stent to right coronary and a recent anterior myocardial infarction with a stent and thrombectomy to LAD. He has had a stable pattern of symptoms until the onset of the aforementioned complaints. 2. History of hypertension. 3. History of bioprosthetic aortic valve replacement in 2006 for aortic valve disease. 4. Dyslipidemia. The patient is presently on Praluent. RECOMMENDATIONS: At this point in time, we will review the echocardiogram that has been requested. I will observe him overnight. Consideration may be given at pursuing left heart catheterization if symptoms continue overnight or if there is a significant abnormality noted on the echocardiogram that was unsuspected. Further advice will be forthcoming.
[2016-09-07] MEDS ORDERED: LIPITOR PO SCH (21:00)
--- NOTE | 2016-09-07 21:32 | Diag Imaging Result Document ---
PROCEDURE NAME: MYOCARDIAL PERF SCAN, STR/REST - 09/07/2016 REQUESTING PHYSICIAN: Iam Fuentes M.D. SUMMARY: The patient was administered 11.5 millicuries of technetium-99m sestamibi with resting cardiac images obtained. The patient was Lexiscan scan protocol. Patient was administered Lexiscan intravenously and ambulated on a treadmill with heart rate increasing from 73 beats per minute to 94 beats per minute while blood pressure went from 110/69 to 124/90. With stress the patient reported chest discomfort. Baseline ECG demonstrates sinus rhythm and ST and T- wave abnormality in leads 1 and aVL, consider lateral ischemia. With stress the patient developed additional ST and T abnormality and ST depression in the lateral precordial leads which returned to baseline in recovery. SPECT images were reconstructed in the short, horizontal, and vertical axis. A review of these images demonstrated severely diminished activity in the base of the inferolateral region and moderate diminished activity in the mid inferolateral region of the left ventricle on stress images. There is partial improvement in the mid inferolateral region of the left ventricle. Calculated ejection fraction 75% with symmetrical wall motion/thickening. CONCLUSIONS: 1. Adequate response to Lexiscan. 2. Clinically positive for chest pain. 3. Stress ECG was abnormal suggesting inducible myocardial ischemia. 4. Abnormal Lexiscan sestamibi images demonstrate mixed defect in the basal to mid inferolateral recent left ventricle with corresponding preserved regional wall-motion suggesting inducible myocardial ischemia and distribution of left circumflex coronary artery. Normal left ventricular systolic function demonstrated.
[2016-09-07] MEDS ORDERED: MAGNESIUM SULFATE 2 GM in STERILE WATER INJ. 50 ML IV PRN ×4 (22:57)
[2016-09-07] MEDS ORDERED: CEPACOL SORE THROAT LOZENGE MT PRN (22:57)
[2016-09-07] MEDS ORDERED: RESTORIL PO PRN (22:57)
[2016-09-07] MEDS ORDERED: DULCOLAX PR PRN (22:57)
[2016-09-07] MEDS ORDERED: NITROGLYCERIN SL PRN (22:57)
[2016-09-07] MEDS ORDERED: XANAX PO PRN (22:57)
[2016-09-07] MEDS ORDERED: MAGNESIUM SULFATE 3 GM in NS 100 ML IV PRN (22:57)
[2016-09-07] MEDS ORDERED: TYLENOL PO PRN (22:57)
[2016-09-07] MEDS ORDERED: KLOR-CON PO PRN ×3 (22:57)
[2016-09-07] MEDS ORDERED: MILK OF MAGNESIA PO PRN (22:57)
[2016-09-07] MEDS ORDERED: PERCOCET-5 PO PRN (22:57)
[2016-09-08] MEDS: LOVENOX SUBQ SCH (04:25)
--- NOTE | 2016-09-08 05:13 | ECHO REPORT ---
ORDER DATE: 09/07/2016 DIAGNOSIS: Aortic valve disorder with history of previous aortic valve replacement. MEASUREMENTS: 1. Left ventricular end-diastolic diameter 3.7, and systolic diameter 2.5. 2. Posterior wall thickness 1.4. 3. Septal thickness 1.4. 4. Left atrium 4.1. 5. Aortic root 3.7. SUMMARY: 1. Technically difficult study due to limited acoustic window quality. 2. Aortic valve has been replaced with bioprosthesis and is not well seen. Peak gradient across the aortic valve is 37 mmHg with a mean gradient of 21 mmHg. Calculated aortic valve area is 1.6 cm2. There is no aortic regurgitation. Moderate mitral annular calcification is demonstrated with mild (1+) mitral regurgitation. Tricuspid and pulmonic valves are without structural abnormality with trace tricuspid regurgitation and mild pulmonic insufficiency. The estimated systolic PA pressure by Doppler is 30 mmHg. Aortic root is normal in size. 3. Normal left chamber size with mild concentric left hypertrophy is demonstrated. The estimated left ventricular ejection fraction is 60%. No regional wall motion abnormality is evident. Doppler suggests left ventricular diastolic dysfunction due to impaired relaxation (grade 1 left ventricular diastolic dysfunction). Left atrium is mildly enlarged. Right atrium and right ventricle are normal size with grossly preserved right ventricular systolic force. 4. No pericardial effusion. 5. Appearance of the inferior vena cava suggests normal central venous pressure. CONCLUSIONS: 1. Actively functioning aortic valve bioprosthesis. 2. Mild mitral regurgitation. 3. Mild concentric left hypertrophy. 4. Normal left ventricular systolic function. 5. Doppler suggests grade 1 left ventricular diastolic dysfunction. 6. Mild left atrial enlargement.
[2016-09-08] MEDS: PRILOSEC PO SCH (06:22)
[2016-09-08] MEDS: FLOMAX PO SCH (08:56)
[2016-09-08] MEDS: ASPIRIN PO SCH (08:56)
[2016-09-08] MEDS: TENORMIN PO SCH (08:56)
[2016-09-08] MEDS: DIOVAN PO SCH (08:56)
[2016-09-08] MEDS: SYNTHROID PO SCH (08:57)
[2016-09-08] MEDS: NORVASC PO SCH (08:57)
[2016-09-08] MEDS: SINEMET 25/100 PO SCH ×2 (08:57→08:58)
[2016-09-08] MEDS: NEURONTIN PO SCH ×2 (08:57→18:43)
--- NOTE | 2016-09-08 17:10 | PROGRESS NOTE ---
DATE: 09/08/2016 CHIEF COMPLAINT: Chest pain. SUBJECTIVE: Mr. Zamorano continues to have chest discomfort. Over the course of the night, he had multiple bouts of chest discomfort. He is presently on Tenormin, amlodipine. His stress test done yesterday shows focal anterior defect that is fixed and a partially reversible lateral wall defect which is probably related to a chronically occluded circumflex system. OBJECTIVE: Vital signs: His blood pressure today is 138/89. Temperature 97.6. Pulse 68. Respirations 12. General: He is awake, alert, oriented, in no distress. HEENT: Unremarkable. Chest: Clear to auscultation and percussion. Cardiac: Heart sounds are regular and rhythmic. No gallop or murmur. Abdomen: Nontender. Extremities: Show no edema. Neurologic: Exam is normal. LABORATORY DATA: He ruled out with multiple sets of troponins. IMPRESSION: 1. The patient has recurrent chest pain, angina pectoris. He does have an abnormal stress test. 2. Previous myocardial infarction, stent to LAD. 3. Hypertension. 4. Severe hyperlipidemia. RECOMMENDATIONS: The patient continues to have chest pain in spite of our best efforts. He really wants to go to [place] for an arteriogram. Will make arrangements for that. Benefits, risks, complications of cardiac catheterization were discussed with him. We called the transfer center and they will make arrangements for that specific purpose.
--- NOTE | 2016-09-08 17:47 | PROGRESS NOTE ---
DATE: 09/08/2016 SUBJECTIVE: Patient continues to have some fleeting pains in his left chest, very atypical, but they come and go. His stress test did show some inducible ischemia, and echocardiogram was reasonably normal except for some mild diastolic dysfunction. OBJECTIVE: Vital Signs: Afebrile. Vital signs stable. CV: RRR with murmur. Lungs: CTA. Extremities: No edema. Neuro: Nonfocal. DIAGNOSTIC DATA: Cardiac enzymes: Troponin levels normal. Lipid profile good. Echocardiogram shows limited acoustic window, moderate annular calcification of the aorta with 1+ mitral regurgitation, trace TR and mild PI. EF 60%. No regional wall motion abnormality. Grade 1 left ventricular diastolic dysfunction. No pericardial effusion. Aortic valve bioprosthesis. ASSESSMENT: 1. Chest pain. 2. Abnormal Lexiscan. 3. History of bioprosthetic aortic valve replacement. 4. Gout. 5. Hypercholesterolemia. 6. Hypothyroidism. 7. Gastroesophageal reflux disease. 8. Depression. 9. Parkinson's disease. Followed by Neurology. PLAN: At this time we will continue treatment with aspirin, sublingual nitroglycerin, p.r.n. morphine, atenolol. Continue his Sinemet and Synthroid, and will defer next step to Cardiology.
[2016-09-08] MEDS: MORPHINE IV PRN (19:33)
[2016-09-08 19:37] VITALS: BP 136/79
== END 2016-09-08 19:10 | disposition short-term general hospital (02) | DRG 303 ==
LOC: ED 19:38 → EDIPHOLD 09-07 03:10 → 3S 09-07 16:35
PROVIDERS: ADMIT Family Medicine; ATTEND Family Medicine
DX: I25.119 Atherosclerotic heart disease of native coronary artery with unspecified angina pectoris (principal); G20 Parkinson's disease; R94.39 Abnormal result of other cardiovascular function study; I25.2 Old myocardial infarction; I10 Essential (primary) hypertension; E78.5 Hyperlipidemia, unspecified; E03.9 Hypothyroidism, unspecified; E78.00 Pure hypercholesterolemia, unspecified; M10.9 Gout, unspecified; N40.0 Benign prostatic hyperplasia without lower urinary tract symptoms; R01.1 Cardiac murmur, unspecified; K21.9 Gastro-esophageal reflux disease without esophagitis; F32.9 Major depressive disorder, single episode, unspecified; F17.220 Nicotine dependence, chewing tobacco, uncomplicated; Z79.899 Other long term (current) drug therapy; Z79.82 Long term (current) use of aspirin; Z95.5 Presence of coronary angioplasty implant and graft; Z95.2 Presence of prosthetic heart valve
CPT/HCPCS: 36415; 71020; 78452; 80048; 80053; 80061; 82550; 83721; 83735; 83880; 84484; 85025; 85379; 85610; 85730; 93005; 93017; 96372; 96374; 96375; 96376; A9500; C8929; J0280; J1650; J1940; J2270; J2405; J0820

== ENCOUNTER 2016-10-24 09:46 | Inpatient (IN) ==
[2016-10-24 10:15] LABS: MANUAL DIFF NEEDED? NO
[2016-10-24 10:26] LABS: ALLEN TEST YES; BE 1.2 mmoll (-3.0-3.0); BLOOD TYPE ARTERIAL; DRAW SITE R RADIAL; METHB 1.7 % (0.0-1.5); O2(CT) 17.9 mL/dL (15.0-23.0); PCO2(98.6) 36 mmHg (35-45); PO2(98.6) 88 mmHg (60-100); SAMPLE BLOOD; SAO2 99.8 % (95.0-100.0); THB 13.3 g/dL (11.5-17.4); pH(98.6) 7.45 (7.35-7.45)
[2016-10-24 10:27] LABS: MODALITY CANNULA
[2016-10-24 10:37] LABS: AGAP 14; ALBUMIN 3.5 g/dL (3.5-5.0); ALKALINE PHOSPHATASE 73 U/L (32-122); BUN 14 mg/dL (8-22); CALCIUM 8.6 mg/dL (8.8-10.2); CHLORIDE 101 mmol/L (98-107); CK PROFILE 43 U/L (24-204); COSMO 284; GOT 25 U/L (10-34); GPT 43 U/L (10-44); INR 0.96; LIPASE 20 U/L (13-60); POTASSIUM 4.1 mmol/L (3.5-5.1); PTT 27.1 Seconds (22.0-36.0); SODIUM 139 mmol/L (136-145); TCO2 24 mmol/L (25-35); TOTAL PROTEIN 6.1 g/dL (6.3-8.3)
--- NOTE | 2016-10-24 10:37 | PROVIDER DOCUMENTATION ---
HPI-General Adult - General Chief Complaint: Weakness Stated Complaint: confusion, pain all over Time Seen by Provider: 10/24/16 10:09 Source: patient Allergies/Adverse Reactions: Patient Allergies Allergy/AdvReac Type Severity Reaction Status Date / Time shellfish derived Allergy Severe SHORTNESS Verified 10/24/16 10:14 OF BREATH Home Medications: Home Medication List Medication Instructions Recorded Confirmed Last Taken Type Atenolol 50 mg PO DAILY 01/23/14 10/24/16 10/23/16 History 50 ATORVAstatin [Lipitor] 40 mg PO QHS 11/10/15 10/24/16 10/23/16 History 40 Allopurinol 300 mg PO DAILY 11/10/15 10/24/16 10/23/16 History Amlodipine [Norvasc] 2.5 mg PO DAILY 11/10/15 10/24/16 10/23/16 History 2.5 Aspirin [Ecotrin] 81 mg PO DAILY 11/10/15 10/24/16 10/23/16 History Bupropion HCl [Wellbutrin Xl] 300 mg PO DAILY 11/10/15 10/24/16 10/23/16 History Gabapentin [Neurontin] 300 mg PO TID 11/10/15 10/24/16 10/23/16 History 300 Pantoprazole [Protonix] 40 mg PO DAILY@0700 11/10/15 10/24/16 10/23/16 History 40 Tamsulosin [Flomax] 0.4 mg PO DAILY 11/10/15 10/24/16 10/23/16 History Colchicine/Probenecid [Colbenemid] 0.5 each PO DAILY 07/19/16 10/24/16 10/23/16 History 0.5 Duloxetine [Cymbalta] 60 mg PO BID 07/19/16 10/24/16 10/23/16 History Levothyroxine [Synthroid] 50 microgm PO DAILY 07/19/16 10/24/16 10/23/16 History Valsartan [Diovan] 160 mg PO DAILY 07/19/16 10/24/16 10/23/16 History 160 Nitroglycerin 0.3 mg SL PRN PRN #30 tab.subl 08/28/16 10/24/16 10/23/14 Rx 0.3 Acetaminophen [Tylenol] 650 mg PO Q4H PRN PRN #0 tablet 10/27/16 Unknown Rx Metformin E.r. [Glucophage Xr] 1,000 mg PO DAILY #30 tablet 10/27/16 Unknown Rx Prednisone 20 mg PO DAILY #30 tablet 10/27/16 Unknown Rx - History of Present Illness -Gen Adult Nature of Presenting Problems: 76 yo male presented by ambulance to ED for lower extremity weakness, generalized pain and falling x 3 days. Son came with him and says this is not like him, he is normally very active. Last fall was yesterday, son said had a hard time getting him back up. Pt states that he loses his balance and then falls. Complaining of pain in his shoulders, in his left knee specifically, but son says is generally in pain. Having difficulty breathing as well. Has been having black stools, last noticed yesterday morning. Denies fevers, urinary changes, chest pain, back pain/tearing pain, abdominal pain, flank pain, headache or head injury. Location of Pain/Injury: reports: upper extremity, lower extremity, generalized Pain Radiation: reports: no radiation Quality of Pain: reports: other (weakness) Severity: reports: moderate Onset/Duration: reports: 3 days ago Timing: reports: still present, getting worse Context/Activities at Onset: reports: none Modifying Factors: improves with: nothing Associated Symptoms: reports: dizziness, fatigue, joint pain (bilatearl knees), shortness of breath, sensory/motor loss (weakness in the lower extremities), weakness, trouble walking (needs assistance to walk anywhere). denies: anxiety , arm pain, back/neck pain, chest pain, constipation, cough, diaphoresis, diarrhea, fever/chills, genitourinary problems, headaches, muscle aches, sinus congestion/drainage, nausea, rash, seizure, pain with inspiration, swelling/ mass in abdomen, syncope, vomiting Similar Symptoms Previously?: No Recently seen or treated by another doctor?: Yes (Saw [facility] on ) Review of Systems - Adult - REVIEW OF SYSTEMS - ADULT Constitutional: reports: nnamdi. denies: chills, fever Eyes: denies: discharge, dry eyes, decreased vision, blurred vision Ears, Nose, Mouth & Throat: denies: ear pain, hoarseness, throat pain, throat swelling Cardiovascular: denies: chest pain, heart murmur (Has had aortic valve replacement), poor circulation, syncope (Hasn't passed out but has fallen, pt has difficulty remembering) Respiratory: reports: dyspnea on exertion, shortness of breath. denies: cough, hemoptysis, wheezing Gastrointestinal: denies: abdominal pain, hematemesis, diarrhea, nausea, rectal bleeding (BUt states has had black stools), vomiting Genitourinary: denies: dysuria, frequency, flank pain, frequent UTI's, hematuria , urgency Musculoskeletal: reports: joint pain, joint swelling (Bilateral knees, pain in his shoulders and under his arms). denies: back pain Integumentary: reports: other (Bruising on arms and legs; ant bites on lower legs/toes). denies: itching, rash, skin sores/ulcer, skin thickening Neurological: reports: dizziness/vertigo, loss of balance. denies: ataxia, headache/migraines, slurred speech Psychiatric: reports: no symptoms reported Endocrine: reports: no symptoms reported Hematologic/Lymphatic: reports: no symptoms reported Allergic/Immunologic: reports: no symptoms reported All Other Systems: Reviewed and Negative Past History - Adult - PAST MEDICAL HISTORY-ADULT Review of Records: reports: Old Records Reviewed, Nursing Assessment Review, Medications Reviewed, Social history reviewed & non-contributory. Major Childhood Illnesses: reports: denies history Cardiovascular: reports: CAD, HTN, heart valve problem (aortic valve), [place] Respiratory: reports: denies history Gastrointestinal: reports: denies history Obstetrical/Gynecological: reports: denies history Genitourinary: reports: denies history Musculoskeletal: reports: denies history Neurological: reports: denies history Endocrine/Immune: reports: denies history Other Conditions: reports: denies history - PRIOR SURGERIES/PROCEDURES Surgical/Procedure History: reports: cholecystectomy, cardiac stent, other ( aortic valve replacement--bovine) - IMMUNIZATION STATUS Childhood Immunizations: See Nurse Assessment Flu Vaccine: See Nurse Assessment - FAMILY HISTORY Family History: reviewed, not pertinent - SOCIAL HISTORY Smoking: denies, non-smoker Physical Exam-General - PHYSICAL EXAM-ADULT Initial Vital Signs Reviewed: Yes (Afebrile, BP normal, not tachy/sarah) - CONSTITUTIONAL General Appearance: alert (Able to answer questions, but appears tired), moderate distress. negative: slow to respond, obtunded - EYES Eyes: PERRL/EOMI, pale conjunctivae, scleral icterus. negative: EOM palsy, sclera injected, subconjunctival hemorrhage, sunken eyes - HEAD, EARS, NOSE, MOUTH & THROAT HENMT: moist mucous membranes (Mallampati score 4). negative: angioedema, pharyngeal erythema, tonsillar exudate - NECK Neck: non-tender, supple. negative: carotid bruit, trachial deviation, tender lateral, tender midline - RESPIRATORY Respiratory: chest non-tender (No pain with palpation or application of stethoscope), lungs clear, normal breath sounds, no accessory muscle use. negative: crackles, rales, rhonchi, stridor, wheezing, retractions, decreased rate, increased rate, crepitus - CARDIOVASCULAR Cardiovascular: no gallop, no JVD, no murmur. negative: normal peripheral pulses (Unable to palpate in the lower extremities due to swelling/tense skin. Radial pulses normal), no edema (Edema to lower extremities bilateral, no pitting edema) - GASTROINTESTINAL (ABDOMEN) Abdominal Exam: non tender, no pulsatile mass, distended, rigid, other (No [place] or Geronimo-Hall's sign. No bruising around abdomen. Non tender abdomen. Has large linear distention midline on abdomen, non tender and compressible, non pulsatile. Unable to palpate the AA due to rigidity.). negative: soft, guarding, rebound, tenderness, mass - LYMPHATIC Lymphatic: negative: cervical node tenderness - MUSCULOSKELETAL Back Exam: normal inspection, no CVA tenderness. negative: ecchymosis Extremity: no calf tenderness, abnormal NV exam (unable to palpate dorsalis pedis pulses. Femoral pulses intact), deformity (right knee deformity, chronic) , joint effusion (left knee), swelling, tenderness (Left knee painful to touch; right knee effusion without fluctuance. Neither are warm to touch, no erythema.) . negative: non-tender (tender to palpation over bilateral knees, with effusion noted in the left knee. No popliteal cysts palpated, no pain with palpation posterior knees.), normal gait (Shuffling gait with assistance to the restroom observed), normal inspection (Swelling in lower extremities; 1+ pitting. Many scabs and pustules on the lower extremities and feet/toes), no pedal edema, erythema, inflammation Peripheral Pulses: radial (R): 2+, radial (L): 2+, femoral (R): 2+, femoral (L) : 2+, dorsalis-pedis (R): 0, dorsalis-pedis (L): 0 - SKIN Integumentary: normal color, warm/dry, swelling, tenderness, warm, other (Has bruising on arms and legs with some scabbing.). negative: diaphoresis, ecchymosis, erythema, jaundice, pallor, rash, zoster-like rash - NEUROLOGIC Neurologic: correctional program specialist II-XII nml as tested, abnormal gait. negative: aphasia, EOM palsy, facial droop, motor weakness (Normal strength in upper extremities, sensation intact. Lower extremities have decreased strength, pt has pain and struggles to flex the knees and cannot lift his legs.) - PSYCHIATRIC Psych/Mental Status: other (Slightly confused with some of my questions, but still smiling, answering what he can remember and cooperative with commands/ requests/questions.) Progress - PLAN OF CARE/RESULTS Progress/Plan/Lab Results: Vital Signs - 8 hr 10/24/16 09:49 Temperature 98.1 F Pulse Rate 69 Respiratory Rate 14 Blood Pressure 124/82 O2 Sat by Pulse Oximetry 94 L Laboratory Results - last 24 hr 10/24/16 10:20 Specimen Type ARTERIAL Sample Site R RADIAL pH 7.45 pCO2 36 pO2 88 HCO3 25.8 Base Excess 1.2 Oxyhemoglobin 95.1 ABG O2 Sat (Calculated) 17.9 ABG O2 Saturation 99.8 ABG Carboxyhemoglobin 2.90 H ABG Methemoglobin 1.7 H Dmitriy Test YES A-a O2 Difference 67.0 Total Hemoglobin 13.3 Lactate 1.10 Liter Flow 2.0 Blood Gas Modality CANNULA FiO2 % 28.0 Orders Category Date Time Status Cardiac Monitoring DIRECTED Care 10/24/16 10:01 Active Finger Stick Blood Sugar (ED) DIRECTED Care 10/24/16 10:01 Active Oxygen Therapy- ED Nursing DIRECTED Care 10/24/16 10:01 Active Saline Loc NOW Care 10/24/16 10:01 Active CHEST-PORTABLE [RAD] Stat Exams 10/24/16 10:01 Taken HEAD W/O CONTRAST [CT] Stat Exams 10/24/16 10:01 Ordered ABG [RESP] Routine Lab 10/24/16 10:20 Completed ALCOHOL BLOOD Stat Lab 10/24/16 09:57 Received BLOOD CULTURE [BLDCUL] Stat Lab 10/24/16 10:01 Uncollected CBC WITH ELECTRONIC DIFF [HEME] Stat Lab 10/24/16 09:57 Results CK PROFILE [SP CHEM] Stat Lab 10/24/16 09:57 Received COMPREHENSIVE METABOLIC PANEL [CHEM] Stat Lab 10/24/16 09:57 Received D-DIMER [CHEM] Stat Lab 10/24/16 09:57 Received LACTATE, PLASMA [CHEM] Stat Lab 10/24/16 10:01 Uncollected LIPASE [CHEM] Stat Lab 10/24/16 09:57 Received PRO B-NATRIURETIC PEPTIDE Stat Lab 10/24/16 09:57 Received PROTIME WITH INR [COAG] Stat Lab 10/24/16 09:57 Received PTT [COAG] Stat Lab 10/24/16 09:57 Received TROPONIN T Stat Lab 10/24/16 09:57 Received URINALYSIS W/POSS RFLX CULT-1 [URINALYSIS] Stat Lab 10/24/16 10:01 Uncollected URINE DRUG SCREEN Stat Lab 10/24/16 10:01 Uncollected Pulse Oximetry Stat Oth 10/24/16 10:01 Active EKG [EKG] Stat Ther 10/24/16 10:01 Ordered Result Diagrams: 10/25/16 05:42 10/25/16 05:42 - REASSESSMENT Reassessment #1 Time Reassessed: 14:06 (Dr Gilbert at bedside, discussed with fmaily. Recommend admission for progressive weakness over last 3 days, confusion) Status: unchanged Reassessment #2 Time Reassessed: 14:45 (Dr Pratt- admit to floor with telemetry) - CONSULTS/PCP/HOSPITALIST Notification #1 *Consult/PCP/Hospitalist*: Dr Pratt Time Discussed: 14:13 (Dr Pratt discussed with Dr. Gilbert about patient. Will come see pt) #2 Consult: Dr Pratt Time Discussed: 14:25 Reason/Comments: At bedside Departure - Departure Time of Disposition Decision: 14:49 DIAGNOSIS: Weakness Altered mental status Qualifiers: Altered mental status type: disorientation Qualified Code(s): R41.0 - Disorientation, unspecified Disposition: ADMITTED INPATIENT 09 Certified Medical Emergency: Emergent Condition: Stable - Critical Care Note This patient required my direct & personal management of CC.: Yes Attestation - Physician/ ALLIE Attestation Patient care was provided by Advanced Practice Provider:: Yes Advanced Practice Provider:: Tomás Bangura Advanced Practice Provider documentation review:: The Mid-level provider documentation, treatment plan and medical decision making was reviewed by the physician who agrees with all treatment and medical decision making by the MLP. The physician spent face to face time with patient:: Yes (Dr. Gilbert) Advanced Practice Provider documentation review:: The physician spent face to face time with this patient and agrees with all MLP documentation, treatment, and medical decision making by the MLP. See provider notes for further information.
[2016-10-24 10:48] LABS: BASO% 0.3 % (0.0-0.8); EOS# 0.14 X1000 (0.0-0.7); EOS% 1.3 % (0.0-10.0); HEMATOCRIT 39.8 % (42.0-52.0); HEMOGLOBIN 13.3 g/dL (14.0-18.0); IMM GRAN# 0.06 X1000 (0.0-0.04); IMM GRAN% 0.5 % (0.0-0.5); LYMPH# 1.83 X1000 (1.2-3.4); LYMPH% 16.4 % (20.5-51.1); MCH 33.4 PG (27-31); MCHC 33.4 g/dL (33-37); MONO# 1.56 X1000 (0.11-0.59); MPV 11.4 FL (7.4-10.4); NEUT% 67.5 % (42.2-75.2); PLT 92 X1000 (130-400); RBC 3.98 XMIL (4.7-6.1)
--- NOTE | 2016-10-24 12:25 | Diag Imaging Result Document ---
PROCEDURE NAME: HEAD W/O CONTRAST - 10/24/2016 CT HEAD WITHOUT CONTRAST: A dose-reduction protocol was used. COMPARISON: No comparison exam. FINDINGS: There are chronic microvascular ischemic changes. There are scattered small lacunar infarcts, including the caudate nucleus, basal ganglia, and anterior thalamus on the right, which may be chronic. There is no specific acute infarct identified, although acute infarcts may not be immediately visible. There is no evidence of hemorrhage, mass effect, or midline shift. IMPRESSION: 1. Chronic-appearing microvascular ischemic changes with multiple small lacunar infarcts. If further imaging evaluation is desired, MRI is recommended. 2. No hemorrhage or mass effect.
[2016-10-24 12:37] LABS: URINE CULTURE NEEDED? NO; URINE MICRO REVIEW NEEDED? NO; URINE SOURCE CLEAN CATCH
--- NOTE | 2016-10-24 12:44 | Diag Imaging Result Document ---
PROCEDURE NAME: CT PELVIS WITH IV CONTRAST ONL - 10/24/2016 CT ABDOMEN AND PELVIS WITH IV CONTRAST ONLY: Exam performed with intravenous contrast only per request of the referring provider. A dose-reduction protocol was used. COMPARISON: No comparison exam. FINDINGS: There is subsegmental atelectasis of the visualized bilateral lung bases. There are no substantial abnormalities of the liver, spleen, adrenal glands, or pancreas identified. The gallbladder is surgically absent. There is mild prominence of the common bile duct which likely relates to the postcholecystectomy state. There is cortical scarring at the lateral mid right kidney. There is a nonspecific 1.5 cm round lesion which arises exophytically at the lower right kidney. There is no hydronephrosis. There are nonspecific small retroperitoneal lymph nodes. There are no substantially enlarged lymph nodes identified. There are postsurgical changes at the right colon. There is a moderate amount of retained fecal debris in the colon. There are multiple small air-fluid levels in a loop of small bowel at the medial left lower quadrant. The small bowel loop is nondistended to slightly distended and may have slightly thickened harley. These findings are of uncertain significance, although mild enteritis at this location cannot be excluded. There is no other substantial bowel wall thickening identified. The appendix is not identified. There is no abscess identified. There is no free air or free fluid identified. Images of the pelvis show enlarged prostate which measures 4.7 x 5.7 cm in maximum AP and transverse dimensions, respectively and produces mild mass effect on the base of the urinary bladder. There is a 1.4 cm diverticulum which arises at the anterior superior margin of the urinary bladder. IMPRESSION: Status post cholecystectomy. Cortical scarring at lateral mid right kidney. Nonspecific 1.5 cm lesion at lower right kidney. Followup in about 3 months is recommended. Nonspecific small retroperitoneal lymph nodes. Mildly abnormal-appearing loop of small bowel at medial left lower quadrant, possibly related to focal mild enteritis. No abscess. No free air. Apparent constipation. Enlarged prostate. Small urinary bladder diverticulum. [facility]
[2016-10-24 12:47] LABS: BILIRUBIN URINE NEGATIVE (NEGATIVE); BLOOD URINE NEGATIVE (NEGATIVE); COLOR YELLOW; GLUCOSE URINE NEGATIVE (NEGATIVE); LEUKOCYTES URINE NEGATIVE (NEGATIVE); NITRITE URINE NEGATIVE (NEGATIVE); PH URINE 6.5; PROTEIN URINE NEGATIVE (NEGATIVE); SP GRAVITY URINE 1.015; TURBIDITY URINE CLEAR (CLEAR); UROBILINOGEN URINE NORMAL (NORMAL)
--- NOTE | 2016-10-24 12:48 | Diag Imaging Result Document ---
PROCEDURE NAME: CHEST-PORTABLE - 10/24/2016 PORTABLE CHEST: COMPARISON: 09/06/2016. Heart size appears normal. There are sternal wires from previous surgery again seen. There is mild tortuosity of the thoracic aorta. There is mild linear atelectasis or scarring at the lung bases. The lungs, otherwise, appear clear. There is no pleural effusion or pneumothorax identified. IMPRESSION: Mild linear atelectasis or scarring at lung bases. No other evidence of acute disease.
[2016-10-24 12:49] LABS: UR EPITHELIAL CELLS <10 /HPF (<10); URINE BACTERIA NEGATIVE /HPF; URINE RBC <10 /HPF (<10); URINE WBC <10 /HPF (<10)
--- NOTE | 2016-10-24 13:33 | Diag Imaging Result Document ---
PROCEDURE NAME: CTA THORAX/ABDOMEN/PELVIS - 10/24/2016 CT ANGIOGRAM THORACIC AND ABDOMINAL AORTA WITH CONTRAST: Exam performed with intravenous contrast. Axial, reformatted sagittal and coronal, and reformatted 3D rotating MIP images are obtained. FINDINGS: The ascending aorta is dilated up to 4.5 cm. The aortic arch is dilated up to 3.8 cm proximally and 3.4 cm distally. There is no evidence of thoracic aortic dissection. There is no evidence of abdominal aortic aneurysm. There is no evidence of abdominal aortic dissection. The bilateral common and external iliac arteries are noted to be tortuous. The visualized lungs appear clear except for mild basilar atelectasis or scarring. There is no pleural effusion or pneumothorax identified. There is atherosclerotic plaquing with mild narrowing at the origins of the celiac axis and superior mesenteric artery. There is atherosclerotic plaque with mild narrowing at the origins of the bilateral renal arteries. IMPRESSION: Dilated ascending aorta up to 4.5 cm. Dilated aortic arch up to 3.8 cm anteriorly and 3.4 cm posteriorly. No evidence of abdominal aortic aneurysm. No evidence of dissection in the thoracic or abdominal aorta.
[2016-10-24 13:34] LABS: UR AMPHETAMINES QUAL NONE DETECTED (NONE DETECT); UR BARBITUATES QUAL NONE DETECTED (NONE DETECT); UR BENZODIAZEPIN QUAL NONE DETECTED (NONE DETECT); UR CANNABINOIDS QUAL NONE DETECTED (NONE DETECT); UR COCAINE QUAL NONE DETECTED (NONE DETECT); UR METHADONE QUAL NONE DETECTED (NONE DETECT); UR OPIATES QUAL NONE DETECTED (NONE DETECT); UR OXYCODONE QUAL NONE DETECTED (NONE DETECT); UR PCP QUAL NONE DETECTED (NONE DETECT)
[2016-10-24] MEDS: NEURONTIN PO SCH (16:51)
[2016-10-24 17:54] LABS: HEMOGLOBIN A1C 6.3 % (4.8-6.0)
[2016-10-24 18:01] LABS: MAGNESIUM 1.8 mg/dL (1.5-2.7); URIC ACID 6.4 mg/dL (3.4-7.0)
[2016-10-24] MEDS ORDERED: SOLU-MEDROL IV ONE (18:18)
--- NOTE | 2016-10-24 19:29 | HISTORY AND PHYSICAL ---
CHIEF COMPLAINT: 1. Altered mental status. 2. Intermittent confusion. 3. Bilateral shoulder pain, left knee pain, not able to walk, stumbling, frequent falls for the last few days. HISTORY OF PRESENT ILLNESS: He is a 76-year-old, pleasant white gentleman, retired from [employer], patient of Dr. Katz, was brought in by the family along with 2 sons and a [id number] who used to work in the ICU as a nurse. He has had intermittent confusion, not able to walk for the last few days. In fact he was seen by his family physician in his office on . It is complex medical decision about his symptomatology. Apparently last night he was completely confused and not able to go to the bathroom. He was complaining of bilateral shoulder pains. According to the family, he was an avid loan service officer and able to do all activities at home. As a result, the patient was brought into the emergency room. In the ER, basically seen by ED physician and had an extensive workup done. Nothing was significant except a slightly elevated bilirubin and blood sugar around 190. I have seen the patient in the emergency room along with the family members. He was a little better this afternoon. Mini-mental exam, he had a slight mild cognitive impairment with short- term recall. He denies of any headaches, vision problems. He is complaining of left knee pain, bilateral shoulder pain, and basically he also has a tremor noted. No definitive signs of parkinsonism noted. The tremor appears to be mostly essential tremor. I ordered a sedimentation rate and CRP and CRP became very high. He could have evidence of polymyalgia rheumatica along with his underlying osteoarthritis with gout. Family wants him to be admitted for 1) altered mental status and 2) possible polymyalgia rheumatica. We will give IV Solu- Medrol and inpatient physical therapy. As a result, he has been hospitalized. PAST MEDICAL HISTORY: 1. Mild cognitive impairment. 2. Gout. 3. Hypothyroidism. 4. Hypertension. 5. BPH. 6. Hyperlipidemia. 7. Acid reflux disease. 8. Coronary artery disease. Cardiac catheterization in 2016; had thrombectomy of the LAD. 9. Ascending aortic aneurysm 4.5 cm. PAST SURGICAL HISTORY: 1. Reported bioprosthetic aortic valve. 2. Cholecystectomy. 3. Cataract surgery. MEDICATIONS: Atenolol 50 mg daily, Protonix 40 daily, aspirin 81 mg daily, amlodipine 2.5 daily, allopurinol 300 daily, Lipitor 40 daily, Neurontin 300 p.o. t.i.d., Wellbutrin 300 daily, Flomax 0.4 daily, Cymbalta 60 daily, colchicine/probenecid half tablet daily, Robaxin 750 t.i.d., valsartan 160 daily, Synthroid 50 daily, Sinemet 1 tablet p.o. b.i.d., nitroglycerin as needed. ALLERGIES: Reported to shellfish. SOCIAL HISTORY: He is , two daughters. No smoking. No alcohol. Retired from [employer]. FAMILY HISTORY: Noncontributory. LIVING WILL: Full code. REVIEW OF SYSTEMS: HEENT: No headache. No vision problems. No earache. No sore throat. Neck: No goiter. No lymphadenopathy. No bruit. Cardiopulmonary: No chest pain, shortness of breath, PND, orthopnea. History of a bioprosthetic valve replacement in 2017. GI: No nausea, vomiting, abdominal pain. : History of BPH symptoms, controlled. Extremities: No swelling. History of joint pains from the gout in the left knee pain and the back and the shoulders. Neurologic: No obvious weakness other than tremor. No headache. No dizziness. PHYSICAL EXAMINATION: VITAL SIGNS: Stable. Afebrile. Pulse is 59, blood pressure is 140/90, room air 99%, 5 feet 8 inch, 176 pounds. HEENT: Atraumatic, normocephalic. Pupils equal, react to light. TMs are normal. Dry mucous membranes. NECK: Supple. No lymphadenopathy. No goiter. CARDIOPULMONARY: Chest is clear to auscultation. Heart sounds are regular with an aortic valve murmur in the aortic area. ABDOMEN: Belly is soft, nontender. Good bowel sounds. RECTAL: Deferred. EXTREMITIES: No peripheral edema, cyanosis, clubbing. Joints are osteoarthritic changes noted in the hands. NEUROLOGIC: Alert and oriented to time, place, and person. Mini-mental exam 28 /30. Essential tremor noted. No rigidity seen. No obvious focal deficits noted. INVESTIGATIONS: CBC: White cell count 11, hematocrit 39, platelets 92,000. PT /INR is normal. D- dimer is negative. ABG on 2 L, pH is 7.45, pCO2 36, PO2 88. SMA 7: Sodium 139 , potassium 4.1, chloride 101, BUN 14, creatinine 1.0, glucose 198, A1c is 6.3. Magnesium is normal. Total bilirubin 2.3. Liver function tests were normal. Cardiac enzymes are normal. CRP was high. Total protein 6.1. Free T4 is normal. Urine is clear. Urine toxic was negative. RADIOLOGY PROCEDURES: 1. CT head: Chronic microvascular ischemic changes. No hemorrhage or mass effect noted. 2. CT of the chest: Dilated ascending aorta to 4.5 cm with no evidence of dissection noted. 3. CT of the abdomen and pelvis: Constipation, enlarged bladder, post cholecystectomy, 1.5 and 4 cm diverticulum in the urinary bladder. 4. Chest x-ray: No evidence of acute disease. ASSESSMENT AND PLAN: 1. This is a 76-year-old white gentleman admitted to the hospital with altered mental status with underlying mild cognitive impairment, worsening because of the pain and weakness. Plan is bilateral shoulder pains, elevated CRP. Follow up on sedimentation rate. We will treat empirically with steroids and see the response. 2. Borderline glucose intolerance. A1c 6.3. Continue to monitor. Sliding scale. 3. Hypothyroidism. On Synthroid. Normal thyroid function tests. 4. Acid reflux disease. On Protonix. 5. Benign prostatic hypertrophy. Flomax 0.4 mg daily. 6. Status post coronary artery disease bioprosthetic valve. Recent workup was negative. 7. Ascending aortic aneurysm. Currently stable. 8. Gout. Allopurinol and colchicine. Uric acid levels were normal. 9. Reconcile home medications. 10. Tremor. Empirically treat for parkinsonism. Physical therapy assistance. Discussed with the family and will follow up on the clinical course and Dr. Katz is going to follow up. cc: MD Fuentes Saini MD [facility]
[2016-10-24] MEDS: CYMBALTA PO SCH (21:53)
[2016-10-24] MEDS: LIPITOR PO SCH (21:53)
[2016-10-25] MEDS: SOLU-MEDROL IV SCH ×3 (03:39→18:15)
[2016-10-25 05:58] LABS: BASO% 0.1 % (0.0-0.8); EOS# 0.01 X1000 (0.0-0.7); EOS% 0.1 % (0.0-10.0); HEMATOCRIT 43.6 % (42.0-52.0); HEMOGLOBIN 14.5 g/dL (14.0-18.0); IMM GRAN# 0.03 X1000 (0.0-0.04); IMM GRAN% 0.3 % (0.0-0.5); LYMPH# 0.72 X1000 (1.2-3.4); LYMPH% 8.1 % (20.5-51.1); MANUAL DIFF NEEDED? YES; MCHC 33.3 g/dL (33-37); MCV 99.3 FL (81-99); MONO# 0.08 X1000 (0.11-0.59); MONO% 0.9 % (1.7-9.3); MPV 10.6 FL (7.4-10.4); NEUT% 90.5 % (42.2-75.2); PLT 112 X1000 (130-400); RBC 4.39 XMIL (4.7-6.1)
[2016-10-25 06:10] LABS: LYMPHS 12 % (21-51); MONO 2 % (1-9)
[2016-10-25 06:18] LABS: AGAP 19; BUN 15 mg/dL (8-22); CALCIUM 9.1 mg/dL (8.8-10.2); CHLORIDE 101 mmol/L (98-107); COSMO 290; POTASSIUM 4.1 mmol/L (3.5-5.1); SODIUM 140 mmol/L (136-145); TCO2 20 mmol/L (25-35)
[2016-10-25] MEDS: PROTONIX PO SCH (06:26)
[2016-10-25] MEDS: ZYLOPRIM PO SCH (08:39)
[2016-10-25] MEDS: FLOMAX PO SCH (08:40)
[2016-10-25] MEDS: NEURONTIN PO SCH ×3 (08:40→16:22)
[2016-10-25] MEDS: TENORMIN PO SCH (08:40)
[2016-10-25] MEDS: CYMBALTA PO SCH ×2 (08:40→21:36)
[2016-10-25] MEDS: COLCRYS PO SCH (08:40)
[2016-10-25] MEDS: SYNTHROID PO SCH (08:40)
[2016-10-25] MEDS: DIOVAN PO SCH (08:40)
[2016-10-25] MEDS: BENEMID PO SCH (08:41)
[2016-10-25] MEDS: ASPIRIN EC PO SCH (08:42)
[2016-10-25] MEDS: WELLBUTRIN XL PO SCH (08:42)
[2016-10-25] MEDS: NORVASC PO SCH (08:42)
[2016-10-25] MEDS ORDERED: COLBENEMID PO SCH (09:00)
[2016-10-25] MEDS ORDERED: TYLENOL PO PRN (12:59)
--- NOTE | 2016-10-25 15:02 | PROGRESS NOTE ---
DATE: 10/25/2016 SUBJECTIVE: For the last 24 hours, the patient is confused at the night time. In the morning, his mental status is lucid. The patient was examined, along with his and the son. His muscle pain, fatigue slightly improved. REVIEW OF SYSTEMS: None reported. PHYSICAL EXAMINATION: Vital Signs: Afebrile. Vitals are stable. Pulse oximetry 94% on room air. Input and output -610 mL. HEENT: Within normal limits. Neck: Supple. No lymphadenopathy. Chest: Clear. Heart: Sounds are regular with a 2 x 6 systolic murmur in the aortic area. Abdomen: Belly is soft, nontender. Good bowel sounds. Extremities: No peripheral edema cyanosis clubbing. Musculoskeletal: Joints, osteoarthritic changes noted in the DIP and PIP joints. INVESTIGATIONS: CBC: White cell count 8.9, hematocrit 43, platelets 112,000. Sedimentation rate was 58. SMA7, sodium 140, potassium 4.1, chloride 101. BUN 15, creatinine 1, glucose 282. CRP was high. ASSESSMENT AND PLAN: 1. Altered mental status. [place] effect. Probably delirium. We will use Geodon and Seroquel as needed. 2. Fatigue, weakness, muscle pains suspicious for polymyalgia rheumatica, along with osteoarthritis. Elevated sedimentation rate and CRP. We will use the IV steroids and slowly taper off and the follow up on anti-GAYE panel. 3. Glucose intolerance with worsening from steroids. Continue on sliding scale with insulin coverage. 4. Gout is stable. 5. Benign prostatic hypertrophy on Flomax. Continue present medical therapy. 6. Physical therapy for ambulation. Dr. Katz is going to follow up in the morning. Discussed with the family. LEVEL OF DOCUMENTATION: 25 minutes. cc: MD Fuentes Saini MD
[2016-10-25] MEDS: HUMULIN R SUBQ SCH ×2 (16:23→21:37)
[2016-10-25] MEDS: LIPITOR PO SCH (21:37)
[2016-10-26] MEDS: SOLU-MEDROL IV SCH ×3 (05:14→18:02)
[2016-10-26] MEDS: HUMULIN R SUBQ SCH ×4 (07:13→21:28)
[2016-10-26] MEDS: NORVASC PO SCH (08:58)
[2016-10-26] MEDS: BENEMID PO SCH (08:58)
[2016-10-26] MEDS: PROTONIX PO SCH (08:59)
[2016-10-26] MEDS: COLCRYS PO SCH (08:59)
[2016-10-26] MEDS: WELLBUTRIN XL PO SCH (09:00)
[2016-10-26] MEDS: FLOMAX PO SCH (09:00)
[2016-10-26] MEDS: TENORMIN PO SCH (09:00)
[2016-10-26] MEDS: CYMBALTA PO SCH ×2 (09:00→21:27)
[2016-10-26] MEDS: DIOVAN PO SCH (09:00)
[2016-10-26] MEDS: SYNTHROID PO SCH (09:00)
[2016-10-26] MEDS: ASPIRIN EC PO SCH (09:00)
[2016-10-26] MEDS: NEURONTIN PO SCH ×4 (09:00→16:46)
[2016-10-26] MEDS: ZYLOPRIM PO SCH (09:01)
[2016-10-26] MEDS: LIPITOR PO SCH (21:27)
[2016-10-27] MEDS: SOLU-MEDROL IV SCH ×2 (04:34→11:28)
[2016-10-27] MEDS: PROTONIX PO SCH ×2 (05:34→07:41)
[2016-10-27] MEDS: HUMULIN R SUBQ SCH ×3 (06:28→16:34)
--- NOTE | 2016-10-27 07:42 | PROGRESS NOTE ---
DATE: 10/26/2016 SUBJECTIVE: Patient overall feeling better. No significant confusion. He has noted marked improvement in his ability to move his arms and legs with Solu-Medrol IV. OBJECTIVE: Afebrile, pulse 62, respirations 18, blood pressure 167/86, O2 saturation on room air 93%-97%. CV: RRR. Lungs CTA. Extremities: No significant edema. Moves his extremities well. Neurologic: Nonfocal. Cranial nerves intact. LABORATORY DATA: Sedimentation rate elevated yesterday at 54 and 58 on admission. CRP was elevated at 62.23 this morning. Blood sugar ranging in the low to mid 200s. ASSESSMENT: 1. Delirium, improved. Possibly related to medications such as methocarbamol and Sinemet; the latter per Dr. Favian Zheng, his neurologist. 2. Possible polymyalgia rheumatica. 3. Type 2 diabetes mellitus exacerbated by steroids. 4. Hypothyroidism. 5. Gastroesophageal reflux disease. 6. Benign prostatic hypertrophy. 7. Coronary artery disease. 8. Prostatic aortic valve tissue. 9. Ascending aortic aneurysm. 10. Gout. 11. Benign essential tremor followed by Dr. Zheng, neurologist. PLAN: We are going to leave him off the Sinemet. This seems to give him difficulties and leave him off the methocarbamol,simplify his medications and try to control his gout. Continue steroids and try to change him over to oral soon and possibly discharge tomorrow if he does well. He has been followed by Dr. Crawford and also followed by Dr. Favian Zheng, his neurologist. These are people he will need to see as an outpatient. cc: Fuentes Katz MD
[2016-10-27] MEDS: COLCRYS PO SCH (08:33)
[2016-10-27] MEDS: DIOVAN PO SCH (08:33)
[2016-10-27] MEDS: WELLBUTRIN XL PO SCH (08:33)
[2016-10-27] MEDS: SYNTHROID PO SCH (08:34)
[2016-10-27] MEDS: TENORMIN PO SCH (08:34)
[2016-10-27] MEDS: FLOMAX PO SCH (08:34)
[2016-10-27] MEDS: NORVASC PO SCH (08:34)
[2016-10-27] MEDS: ZYLOPRIM PO SCH (08:34)
[2016-10-27] MEDS: NEURONTIN PO SCH ×3 (08:34→16:34)
[2016-10-27] MEDS: ASPIRIN EC PO SCH (08:34)
[2016-10-27] MEDS: CYMBALTA PO SCH (08:34)
[2016-10-27] MEDS: BENEMID PO SCH (08:35)
[2016-10-27 15:49] VITALS: BP 150/91
--- NOTE | 2016-10-27 17:54 | PROGRESS NOTE ---
DATE: 10/27/2016 SUBJECTIVE: Patient doing better. He has had no delirium or confusion. He feels better and is able to move his joints and get up from a chair much better now that he has been on the steroids. OBJECTIVE: General Appearance: Patient is sitting up in a chair. Appears much better than on admission. Vital Signs: Afebrile, pulse 56, respirations 18, blood pressure 150/91, O2 saturation on room air 94%-98%. CV: RRR with murmur. Lungs: CTA. Extremities: No calf tenderness, cords or edema. ASSESSMENT: 1. Delirium. Resolved. 2. Polymyalgia rheumatica. 3. Ascending aortic aneurysm. 4. Right renal lesion 1.5 cm lower aspect. 5. Type 2 diabetes mellitus, newly diagnosed, exacerbated by steroids. 6. Hypothyroidism. 7. Gastroesophageal reflux disease. 8. Benign prostatic hypertrophy. 9. Coronary artery disease. 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 11. Gout. 12. Benign essential tremor. Followed by Dr. Zheng, neurologist, with consideration being given to Parkinson disease. Patient unable to tolerate Sinemet. PLAN AT THIS TIME: Patient is improved. We will discharge him home on prednisone alf course which will be followed up by myself in a week and will ask him to see Dr. Crawford, his environmental research scientist, for guidance in regard to this as well. Continue gout medications per Dr. Crawford as well. He will also see Dr. Favian Zheng for followup of delirium and possible multi-infarct dementia onset. Also he is followed by him for a tremor and potential for Parkinson disease. He will also follow with Cardiology for assistance in regard to monitoring of ascending aortic aneurysm. He will need a repeat CTRSS in 6 months to re-evaluate the lesion in right lower kidney. cc: Fuentes Katz MD
--- NOTE | 2016-10-27 22:40 | DISCHARGE SUMMARY ---
ADMISSION DATE: 10/24/2016 DISCHARGE DATE: 10/27/2016 DIAGNOSES: 1. Delirium, thought multifactorial. Rule out secondary to medications such as Robaxin and Neurontin. Also, with profound lacunar infarcts on CT. Consideration given for early onset multi-infarct dementia. At any rate, now delirium much improved. 2. Polymyalgia rheumatica. 3. Ascending aortic aneurysm. 4. A 1.5 cm right lower pole of the kidney nonspecific lesion. 5. Hypertension. 6. Coronary artery disease. 7. Hyperlipidemia. 8. Gout. 9. Hypothyroidism. 10. Benign prostatic hypertrophy. 11. Gastroesophageal reflux disease. 12. Prosthetic aortic tissue valve. 13. Pronounced osteoarthritis. PROCEDURES: 1. CT scan of the head, revealing chronic microvascular ischemic changes with lacunar areas. No hemorrhage or mass. 2. CT scan of the chest, pelvis, and abdomen, revealing dilated ascending aortic aneurysm at 4.5 cm, without evidence of dissection. Constipation and enlarged bladder noted. Previous cholecystectomy and diverticulum of the urinary bladder noted. cc: Fuentes Katz MD
--- NOTE | 2016-10-28 04:35 | DISCHARGE SUMMARY ---
ADMISSION DATE: 10/24/2016 DISCHARGE DATE: 10/27/2016 ADDITIONAL DISCHARGE DIAGNOSES: 1. Depression 2. New-onset type 2 diabetes mellitus. ADDITIONAL PROCEDURES: Chest x-ray: No evidence of acute disease. REASON FOR ADMISSION AND HOSPITAL COURSE: The patient is a 76-year-old white male, followed in my medical practice, who came in to the emergency room with intermittent confusion, difficulty walking. Sedimentation rate was elevated, as was CRP, and findings consistent with polymyalgia rheumatica. Patient responded to IV steroids and began to move about the hospital and ambulate and get up from a chair much more readily. Delirium resolved off of Robaxin, which was discontinued. He has not been on Sinemet lately. That had caused some confusion as well. He was maintained on his other home medications, except for the Sinemet. These included atenolol, Protonix, aspirin, Norvasc, allopurinol, Lipitor, Neurontin, Wellbutrin XL, Flomax, Cymbalta, ColBenemid, Diovan, and Synthroid. The patient did well. Delirium resolved on admission. CT head, abdomen, pelvis was obtained, with findings as above. It was felt that he could be discharged home by 10/27, as he was ambulating without great difficulty, and he had no confusion. He will follow up with consultants that he has already been followed by. These include Dr. Crawford, cycle repairer, particularly in light of his polymyalgia rheumatica. He will also be followed by Dr. Favian Zheng, his neurologist, for the delirium, possible early onset multi-infarct dementia, potential for Parkinson disease versus essential tremor. Also, he is followed by cardiology, and they will be following up on his thoracic aortic aneurysm as well. He will follow up in my office in [address] will [address] him on prednisone 20 mg daily and taper him off of this gradually under guidance per Dr. Crawford. DISCHARGE MEDICATIONS: 1. Prednisone 20 mg daily. 2. Tylenol p.r.n. 3. Allopurinol 300 mg p.o. daily. 4. Norvasc 2.5 mg p.o. daily. 5. Ecotrin 81 mg p.o. daily. 6. Atenolol 50 mg p.o. daily. 7. Lipitor 40 mg p.o. at bedtime. 8. Wellbutrin XL 300 mg p.o. q.a.m. 9. ColBenemid 1 p.o. daily. 10. Cymbalta 60 mg p.o. b.i.d. 11. Neurontin 300 mg p.o. t.i.d. 12. Synthroid 50 mcg p.o. daily. 13. Metformin ER was added at 500 mg daily for new onset type 2 diabetes mellitus. 14. Protonix 40 mg p.o. daily. 15. Flomax 0.4 mg p.o. daily. 16. Diovan 160 mg p.o. daily. 17. Nitroglycerin 0.3 mg sublingual q.5 minutes x3 p.r.n. chest pain. PERTINENT LABORATORY STUDIES: A1c 6.3. CK 43. Troponin less than 0.01. ProBNP 190. Lipase 20. Potassium 4.1, BUN 14, creatinine 1.0. Uric acid 6.4, calcium 1.8. C-reactive protein 127.9. Ammonia 19. Free T4 1.05. Magnesium 1.8. C-reactive protein declined to 62 by discharge. cc: MD Jami Beard MD Amit Arora, MD
[2016-10-28] MEDS ORDERED: PREDNISONE PO SCH (09:00)
[2016-10-28] MEDS ORDERED: GLUCOPHAGE XR PO SCH (09:00)
== END 2016-10-27 19:00 | disposition home or self-care (01) ==
LOC: ED 09:46 → 4N 15:19
PROVIDERS: ADMIT Family Medicine; ATTEND Family Medicine